=== PATIENT | male | born 1955 | race Caucasian/White ===

== ENCOUNTER → 2022-02-20 | Outpatient (CLI) | payer MEDICARE, OTHER ==
[~2022-02-20] MED LIST: ALBU3IS INH; ALBU90OI6 INH; Aspir 8181 MG PO; BUDE.25 INH; FLUO10 PO; FLUT.05NI; FLUT110OIA INH; GABA300 PO; Inderal60 MG; LISHYD2025 PO; METF500 PO; METO25ER PO; OLAN10 PO
[2022-02-20 17:17] LABS: Bun/Creatinine Ratio 28.7 (12.0-20.0); Calcium, Blood 10.4 mg/dL (8.5-10.1); Creatinine, Blood 0.73 mg/dL (0.60-1.20); Potassium, Blood 4.3 mmol/L (3.5-5.5)
== END | disposition home or self-care (01) ==
LOC: LAB SHORT 16:38 → LAB 16:38
PROVIDERS: Physician Assistant
DX: R33.9 Retention of urine, unspecified (principal)
CPT/HCPCS: 80048

== ENCOUNTER → 2022-05-13 | Outpatient (CLI) | payer MEDICARE, OTHER ==
[~2022-05-13] MED LIST changes: +ALBU90OI61 INH; +B-1100 M1 PO; +FOLI1 PO; +LISI20 PO; +LISINOPRIL-HCT1 EAC1 PO; +METFORMIN HCL500 M2 PO; +NICO21TP TOP; +SYMBICORT 16010.2 GM INH; +TAMSULOSIN HCL0.4 M1 PO; +Ventolin/Prove6.7 GM INH
== END | disposition home or self-care (01) ==
DX: R33.9 Retention of urine, unspecified (principal); N39.0 Urinary tract infection, site not specified

== ENCOUNTER 2022-06-17 06:45 | Emergency (ER) | payer MEDICARE, OTHER ==
[~2022-06-17] VITALS: Ht 175.3 cm; Wt 71.2 kg
[2022-06-17 07:34] LABS: Source, Urine Foley catheter
[2022-06-17 07:40] LABS: Appearance, Urine Turbid (Clear); Bilirubin, Urine Neg (Neg); Blood, Urine 5+ (Neg); Color, Urine Amber (P-Yellow); Glucose Qualitative, Urine Neg (Neg); Ketones, Urine Neg (Neg); Leukocyte Esterase, Urine 3+ (Neg); Nitrite, Urine Pos (Neg); Protein, Urine 3+ (Neg); Specific Gravity, Urine 1.015 (1.003-1.022); Urobilinogen, Urine NORM (Normal)
[2022-06-17 07:51] LABS: Amorphous Mod (0-Heavy); Bacteria Mod /hpf; Red Blood Cells, Urine TNTC /hpf (0-2); Squamous Epithelial Cells Not Seen /hpf (Few); White Blood Cells, Urine TNTC /hpf (0-5)
[2022-06-17 07:56] LABS: BASOPHILS ABSOLUTE AUTO 0.04 K/mm3 (0.00-0.23); BASOPHILS PERCENT AUTO 0 % (0-2); EOSINOPHILS ABSOLUTE AUTO 0.03 K/mm3 (0.00-0.68); EOSINOPHILS PERCENT AUTO 0 % (0-6); Hematocrit 40.2 % (37.0-53.0); Hemoglobin 14.2 g/dL (13.5-17.5); IMMATURE GRAN ABSOLUTE AUTO 0.04 K/mm3 (0.00-0.10); IMMATURE GRAN PERCENT AUTO 0 % (0-1); LYMPHOCYTES ABSOLUTE AUTO 0.66 K/mm3 (0.84-5.20); LYMPHOCYTES PERCENT AUTO 5 % (21-46); MONOCYTES ABSOLUTE AUTO 0.81 K/mm3 (0.16-1.47); MONOCYTES PERCENT AUTO 6 % (4-13); Mean Corpuscular HGB 32.3 pg (26.0-34.0); Mean Corpuscular HGB Conc 35.3 g/dL (31.5-36.5); Mean Corpuscular Volume 92 fL (80-100); Mean Platelet Volume 8.3 fL (9.1-12.4); NEUTROPHILS ABSOLUTE AUTO 11.31 K/mm3 (1.96-9.15); NEUTROPHILS PERCENT AUTO 88 % (41-73); Platelet Count 417 K/mm3 (150-400); RDW Coefficient Variation 12.7 % (11.7-14.2); RDW Standard Deviation 42.8 fL (35.1-46.3); Red Blood Cell Count 4.39 M/mm3 (4.30-5.90); White Blood Cell Count 12.89 K/mm3 (4.00-11.30)
[2022-06-17 08:21] LABS: Bun/Creatinine Ratio 23.6 (12.0-20.0); Calcium, Blood 9.1 mg/dL (8.5-10.1); Creatinine, Blood 0.55 mg/dL (0.60-1.20); Potassium, Blood 4.1 mmol/L (3.5-5.5)
[2022-06-17] MEDS ORDERED: CEFP200 PO (08:32)
== END 2022-06-17 10:02 | disposition home or self-care (01) ==
LOC: ER 06:45
PROVIDERS: Emergency Medicine
DX: T83.091A Other mechanical complication of indwelling urethral catheter, initial encounter (principal); N39.0 Urinary tract infection, site not specified; I11.0 Hypertensive heart disease with heart failure; I50.9 Heart failure, unspecified; E11.9 Type 2 diabetes mellitus without complications; J44.9 Chronic obstructive pulmonary disease, unspecified; F17.210 Nicotine dependence, cigarettes, uncomplicated; Z79.82 Long term (current) use of aspirin; Z79.899 Other long term (current) drug therapy; Y83.8 Other surgical procedures as the cause of abnormal reaction of the patient, or of later complication, without mention of misadventure at the time of the procedure
CPT/HCPCS: 36415; 51702; 80048; 81001; 85025; J0696

== ENCOUNTER 2022-11-28 15:02 | Inpatient (IN) | payer MEDICARE, OTHER ==
[~2022-11-28] VITALS: Ht 182.9 cm; Wt 64.9 kg
[~2022-11-28 15:02] MED LIST changes: +AMLODIPINE BES2.5 MG PO; +CEFP200 PO; +FINA5 PO
[2022-11-28 16:16] LABS: BASOPHILS ABSOLUTE AUTO 0.02 K/mm3 (0.00-0.23); BASOPHILS PERCENT AUTO 0 % (0-2); EOSINOPHILS PERCENT AUTO 0 % (0-6); Hematocrit 36.3 % (37.0-53.0); Hemoglobin 12.7 g/dL (13.5-17.5); IMMATURE GRAN ABSOLUTE AUTO 0.07 K/mm3 (0.00-0.10); IMMATURE GRAN PERCENT AUTO 0 % (0-1); LYMPHOCYTES ABSOLUTE AUTO 0.76 K/mm3 (0.84-5.20); LYMPHOCYTES PERCENT AUTO 5 % (21-46); MONOCYTES ABSOLUTE AUTO 1.39 K/mm3 (0.16-1.47); MONOCYTES PERCENT AUTO 8 % (4-13); Mean Corpuscular HGB 31.4 pg (26.0-34.0); Mean Corpuscular Volume 90 fL (80-100); Mean Platelet Volume 8.6 fL (9.1-12.4); NEUTROPHILS PERCENT AUTO 87 % (41-73); Platelet Count 712 K/mm3 (150-400); RDW Coefficient Variation 12.8 % (11.7-14.2); RDW Standard Deviation 42.2 fL (35.1-46.3); Red Blood Cell Count 4.04 M/mm3 (4.30-5.90); White Blood Cell Count 16.54 K/mm3 (4.00-11.30)
[2022-11-28 16:20] LABS: Alanine Aminotransfer (ALT/SGP 132 U/L (12-78); Albumin, Blood 2.8 g/dL (3.4-5.0); Albumin/Globulin Ratio 0.7 (0.8-1.8); Alk Phos 75 U/L (50-136); Anion Gap 11 mmol/L (6-16); Aspartate Aminotrans (AST/SGOT 389 U/L (12-37); Bilirubin, Total 0.7 mg/dL (0.1-1.0); Blood Urea Nitrogen 16 mg/dL (8-24); CO2, Blood 23 mmol/L (21-32); Calcium, Blood 8.9 mg/dL (8.5-10.1); Chloride, Blood 93 mmol/L (98-108); Creatinine, Blood 0.57 mg/dL (0.60-1.20); Ethanol (Alcohol), Blood, Med <3 mg/dL; Globulin, Blood 3.9 g/dL (2.2-4.0); Glomerular Filtration Rate 107 (60-); Glucose, Blood 80 mg/dL (70-99); Potassium, Blood 4.9 mmol/L (3.5-5.5); Sodium, Blood 127 mmol/L (136-145); Total Protein, Blood 6.7 g/dL (6.4-8.2)
[2022-11-28 17:02] LABS: Source, Urine Foley catheter
[2022-11-28 17:18] LABS: Appearance, Urine Hazy (Clear); Bilirubin, Urine Neg (Neg); Blood, Urine 5+ (Neg); Color, Urine Yellow (P-Yellow); Glucose Qualitative, Urine Neg (Neg); Ketones, Urine 4+ (Neg); Leukocyte Esterase, Urine 3+ (Neg); Nitrite, Urine Neg (Neg); Protein, Urine 1+ (Neg); Specific Gravity, Urine 1.015 (1.003-1.022); Urobilinogen, Urine NORM (Normal)
[2022-11-28 17:34] LABS: Creatine Kinase MB 75.5 ng/mL (0.0-3.6)
[2022-11-28 17:39] LABS: Squamous Epithelial Cells Rare /hpf (Few); White Blood Cells, Urine 25-50 /hpf (0-5)
[2022-11-28 17:40] LABS: Amorphous Light (0-Heavy); Bacteria Mod /hpf; Mucus Light (0-Heavy)
[2022-11-28 17:44] LABS: U Amphetamine Screen Not Detected; U Barbituate Screen Not Detected; U Benzodiazapine Screen Not Detected; U Buprenorphine Screen Not Detected; U Cannabinoids Screen DETECTED; U Cocaine Screen Not Detected; U Methadone Screen Not Detected; U Methamphetamine Screen Not Detected; U Opiates Screen Not Detected; U Oxycodone Screen Not Detected; U Phencyclidine Screen Not Detected; U Propoxyphene Screen Not Detected
[2022-11-28 20:54] VITALS: BP 141/87
[2022-11-28 21:05] LABS: Creatine Kinase MB Index 1.1 (0.0-4.0)
--- NOTE | 2022-11-28 21:30 | NUR ---
PT ADMITTED TO ROOM ICU 12 AT 2049 THIS EVENING. PT SLIDE TRANSFERRED TO BED FROM [facility]. PT HIGHLY CONFUSED AND GRABBING AT LINES. HAS PULLED IV'S WHILE IN ED. 2 MG ATIVAN GIVEN AND SOFT WRIST RESTRAINTS ESTABILISHED FOR HIS SAFETY. NOTED: EXTENSIVE WOUNDS SCATTERED THROUGHOUT HIS BODY WITH DIFFERENT STAGES OF HEALING. WILL REVIEW CHART AND PLAN OF CARE FOR THIS PT.
[2022-11-28 21:31] VITALS: BP 107/55
[2022-11-28 21:45] VITALS: BP 124/107
[2022-11-28 21:47] LABS: International Normalized Ratio 1.05
[2022-11-28 22:45] VITALS: BP 122/102
[2022-11-28 23:00] VITALS: BP 100/69
[2022-11-28 23:15] VITALS: BP 78/32
[2022-11-29] VITALS (62 sets, daily range): BP systolic 85–153; BP diastolic 40–133
--- NOTE | 2022-11-29 01:00 | NUR ---
PT HAS BEEN PLACED TO PRECEDEX DRIP. CURRENTLY RATE 0.2MCG'S/KG/HOUR. HAS BEEN MEDICATED SEVERAL TIMES WITH ATIVAN FOR INCREASE IN AGITATION AND ANXIOUSNESS. DID PLACE POWERGLIDE MIDLINE IV IN RIGHT UPPER ARM. PT TOLERATES THIS WELL. DRESSING PLACE TO WOUNDS ABLE. Q 2 HOUR TURNS TO HELP PROTECT SKIN INTEGRITY.
[2022-11-29 05:08] LABS: BASOPHILS ABSOLUTE AUTO 0.03 K/mm3 (0.00-0.23); BASOPHILS PERCENT AUTO 0 % (0-2); EOSINOPHILS PERCENT AUTO 0 % (0-6); Hematocrit 36.3 % (37.0-53.0); Hemoglobin 12.5 g/dL (13.5-17.5); IMMATURE GRAN ABSOLUTE AUTO 0.07 K/mm3 (0.00-0.10); IMMATURE GRAN PERCENT AUTO 0 % (0-1); LYMPHOCYTES ABSOLUTE AUTO 0.88 K/mm3 (0.84-5.20); LYMPHOCYTES PERCENT AUTO 5 % (21-46); MONOCYTES ABSOLUTE AUTO 1.27 K/mm3 (0.16-1.47); MONOCYTES PERCENT AUTO 8 % (4-13); Mean Corpuscular HGB 31.1 pg (26.0-34.0); Mean Corpuscular HGB Conc 34.4 g/dL (31.5-36.5); Mean Corpuscular Volume 90 fL (80-100); Mean Platelet Volume 7.9 fL (9.1-12.4); NEUTROPHILS ABSOLUTE AUTO 13.97 K/mm3 (1.96-9.15); NEUTROPHILS PERCENT AUTO 86 % (41-73); Platelet Count 653 K/mm3 (150-400); RDW Coefficient Variation 12.7 % (11.7-14.2); RDW Standard Deviation 41.9 fL (35.1-46.3); Red Blood Cell Count 4.02 M/mm3 (4.30-5.90); White Blood Cell Count 16.22 K/mm3 (4.00-11.30)
[2022-11-29 05:54] LABS: Albumin, Blood 2.3 g/dL (3.4-5.0); Albumin/Globulin Ratio 0.6 (0.8-1.8); Bilirubin, Total 0.5 mg/dL (0.1-1.0); Bun/Creatinine Ratio 19.6 (12.0-20.0); Calcium, Blood 8.2 mg/dL (8.5-10.1); Creatinine, Blood 0.51 mg/dL (0.60-1.20); Globulin, Blood 3.7 g/dL (2.2-4.0); Potassium, Blood 3.9 mmol/L (3.5-5.5)
[2022-11-29 06:11] LABS: Creatine Kinase MB 43.2 ng/mL (0.0-3.6); Creatine Kinase MB Index 1.4 (0.0-4.0)
--- NOTE | 2022-11-29 06:30 | NUR ---
HAVE REMOVED SOFT RESTRAINTS AFTER NOTING PRECEDEX DRIP HAS HELPED IN KEEPING PT CALM AND NOT BEING AGRESSIVE AT PULLING AT LINES. PT HAS NOT MADE ANY COMPREHENSABLE EFFORTS AT SPEAKING. PT'S SISTER CALLS TO CHECK ON PT. UPDATE GIVEN. WILL CONTINUE TO MONITOR PT, AND WILL REPORT OFF TO ONCOMING RN.
--- NOTE | 2022-11-29 14:05 | NUR ---
RT: called for neb treatment.
--- NOTE | 2022-11-29 15:14 | NUR ---
FAMILY UPDATE: Pt's sister Jimena at bedside with her spouse. Family updated up pt status and plan of care.
--- NOTE | 2022-11-29 19:09 | NUR ---
SHIFT SUMMARY: Pt up to chair for four hours today. Precedex titrated off and librium started after bedside swallow. Pt complained of pain to BLE for which he takes oxycodone at home. Pain was treated with PRN fentanyl.
--- NOTE | 2022-11-29 20:24 | NUR ---
PATIENT SLEEPING, AWAKENS TO SLIGHT STIMULI. WHEN AWAKE C/O PAIN TO BACK, FEET AND HEAD. WHEN ASKED TO ELABORATE, PATIENT QUICK TO ANGER "I JUST HURT" AT TIMES SPEECH IS SOFT AND MUMBLED MAKING IT DIFFICULT TO UNDERSTAND. PATIENT ABLE TO ASSIST WITH REPOSITIONING IN BED. PRECEDEX REMAINS OFF.
[2022-11-29] MEDS ORDERED: OXYC5 PO (20:39)
--- NOTE | 2022-11-29 22:58 | NUR ---
PATIENT APPEARS TO BE SLEEPING, YET SITTING UP IN BED, THROWING BLANKETS OFF, AND MOUTHING WORDS. HEART RATE UP 120'S AND RESP UP TO 24. THIS ALL STARTING AFTER GIVING ATIVAN AND RESTARTING PRECEDEX. PRECEDEX TITRATED OFF.
[2022-11-30] VITALS (57 sets, daily range): BP systolic 93–140; BP diastolic 65–119
[2022-11-30 03:58] LABS: BASOPHILS ABSOLUTE AUTO 0.02 K/mm3 (0.00-0.23); BASOPHILS PERCENT AUTO 0 % (0-2); EOSINOPHILS ABSOLUTE AUTO 0.02 K/mm3 (0.00-0.68); EOSINOPHILS PERCENT AUTO 0 % (0-6); Hematocrit 34.4 % (37.0-53.0); Hemoglobin 11.8 g/dL (13.5-17.5); IMMATURE GRAN ABSOLUTE AUTO 0.06 K/mm3 (0.00-0.10); IMMATURE GRAN PERCENT AUTO 0 % (0-1); LYMPHOCYTES ABSOLUTE AUTO 0.89 K/mm3 (0.84-5.20); LYMPHOCYTES PERCENT AUTO 7 % (21-46); MONOCYTES ABSOLUTE AUTO 1.07 K/mm3 (0.16-1.47); MONOCYTES PERCENT AUTO 8 % (4-13); Mean Corpuscular HGB 31.1 pg (26.0-34.0); Mean Corpuscular HGB Conc 34.3 g/dL (31.5-36.5); Mean Corpuscular Volume 91 fL (80-100); Mean Platelet Volume 7.9 fL (9.1-12.4); NEUTROPHILS ABSOLUTE AUTO 11.73 K/mm3 (1.96-9.15); NEUTROPHILS PERCENT AUTO 85 % (41-73); Platelet Count 610 K/mm3 (150-400); RDW Coefficient Variation 12.9 % (11.7-14.2); RDW Standard Deviation 42.7 fL (35.1-46.3); White Blood Cell Count 13.79 K/mm3 (4.00-11.30)
[2022-11-30 04:14] LABS: Albumin/Globulin Ratio 0.6 (0.8-1.8); Bilirubin, Total 0.4 mg/dL (0.1-1.0); Bun/Creatinine Ratio 15.2 (12.0-20.0); Calcium, Blood 8.2 mg/dL (8.5-10.1); Creatinine, Blood 0.53 mg/dL (0.60-1.20); Globulin, Blood 3.5 g/dL (2.2-4.0); Phosphorus, Blood 1.9 mg/dL (2.5-4.9); Potassium, Blood 3.7 mmol/L (3.5-5.5); Total Protein, Blood 5.5 g/dL (6.4-8.2)
--- NOTE | 2022-11-30 05:27 | NUR ---
SUMMARY PATIENT SLEEPING MOST OF THE NIGHT, WHILE ON PRECEDEX APPEARS TO HAVE VERY ACTIVE DREAMS, PRECEDEX NOW OFF. MEDICATED TWICE WITH FENTANYL 25 MCG FOR BACK AND FOOT PAIN. PATIENT RESISTANT TO REPOSITIONING, ATTEMPTING TO TILT SIDE TO SIDE WHEN ABLE. DOCTOR KATHLEEN NOTIFIED OF AM LABS, ORDER OBTAINED FOR KPHOS.
--- NOTE | 2022-11-30 07:27 | NUR ---
Assumed care at approximately 0700. Bedside report received from cj QUINONES. Pt sleeping in bed at time of report. Potassium phos infusing at 6 mmol/hr. Pt on 02 via NC at 3 L/min. No acute needs at time of report. Will continue to monitor.
--- NOTE | 2022-11-30 18:30 | NUR ---
Shift summary. Pt rested in bed throughout shift. Remains on 02 via NC at 3 L/min. Pt failed speech eval, see assessment. Dobhoff placed at approximately 1630, placement verified by Dr. Chacon via X-ray. TF started, 20 ml/hr goal rate, pivot 1.5, Q4 30ml water flushes. No acute events this shift. See assessments/chart for further details. VS stable, will continue to monitor and report off to cj QUINONES.
--- NOTE | 2022-11-30 19:58 | NUR ---
PATIENT RESTING IN BED WATCHING TV. SPEECH IS SOFT AND MUMBLED AT TIMES, BUT PATIENT IS A&O X3. GENERALIZED WEAKNESS, ABLE TO ASSIST WITH REPOSITIONING IN BED. C/O FOOT PAIN MEDICATED WITH FENTANYL IV WITH LITTLE RELIEF. DOBHOFF TO RIGHT NOSTRIL WITH PIVOT 1.5 AT GOAL RATE OF 20 CC/HR. STRONG NONPRODUCTIVE COUGH. LUNG SOUNDS WITH COARSE WHEEZES T/O 5L/NC TO KEEP BIOX >90%
[2022-12-01] VITALS (20 sets, daily range): BP systolic 92–127; BP diastolic 67–95
--- NOTE | 2022-12-01 00:17 | NUR ---
PATIENT SLEEPING, APPEARS TO HAVE BETTER PAIN CONTROL AFTER ATIVAN AND OXYCODONE GIVEN. PATIENT OPENS EYES TO STIMULI, FALLING BACK TO SLEEP EASILY. RESP EVEN AND UNLABORED. TUBE FEEDING OFF FOR STRESS TEST TOMORROW.
--- NOTE | 2022-12-01 03:36 | NUR ---
PATIENT AWAKE IN A PANIC, HR UP TO 130'S. UDN TX, ATIVAN, AND OXYCODONE GIVEN FOR COARSE WHEEZES, ANXIETY AND FOOT PAIN. PATIENT MORE RELAXED AFTER TREATMENT HR 117-120
[2022-12-01 04:07] LABS: BASOPHILS ABSOLUTE AUTO 0.03 K/mm3 (0.00-0.23); BASOPHILS PERCENT AUTO 0 % (0-2); EOSINOPHILS ABSOLUTE AUTO 0.05 K/mm3 (0.00-0.68); EOSINOPHILS PERCENT AUTO 0 % (0-6); Hematocrit 34.6 % (37.0-53.0); Hemoglobin 11.9 g/dL (13.5-17.5); IMMATURE GRAN ABSOLUTE AUTO 0.04 K/mm3 (0.00-0.10); IMMATURE GRAN PERCENT AUTO 0 % (0-1); LYMPHOCYTES ABSOLUTE AUTO 1.09 K/mm3 (0.84-5.20); LYMPHOCYTES PERCENT AUTO 8 % (21-46); MONOCYTES ABSOLUTE AUTO 1.08 K/mm3 (0.16-1.47); MONOCYTES PERCENT AUTO 8 % (4-13); Mean Corpuscular HGB 31.2 pg (26.0-34.0); Mean Corpuscular HGB Conc 34.4 g/dL (31.5-36.5); Mean Corpuscular Volume 91 fL (80-100); NEUTROPHILS ABSOLUTE AUTO 10.66 K/mm3 (1.96-9.15); NEUTROPHILS PERCENT AUTO 82 % (41-73); Platelet Count 625 K/mm3 (150-400); RDW Coefficient Variation 13.2 % (11.7-14.2); RDW Standard Deviation 43.2 fL (35.1-46.3); Red Blood Cell Count 3.81 M/mm3 (4.30-5.90); White Blood Cell Count 12.95 K/mm3 (4.00-11.30)
[2022-12-01 04:25] LABS: Albumin/Globulin Ratio 0.5 (0.8-1.8); Bilirubin, Total 0.4 mg/dL (0.1-1.0); Bun/Creatinine Ratio 17.9 (12.0-20.0); Calcium, Blood 8.6 mg/dL (8.5-10.1); Creatinine, Blood 0.61 mg/dL (0.60-1.20); Globulin, Blood 3.8 g/dL (2.2-4.0); Phosphorus, Blood 2.8 mg/dL (2.5-4.9); Total Protein, Blood 5.8 g/dL (6.4-8.2)
--- NOTE | 2022-12-01 05:49 | NUR ---
SUMMARY PATIENT SLEEPING MOST OF THE NIGHT, PATIENT MEDICATED WITH ATIVAN 1 MG TWICE DURING THE NIGHT FOR PANIC ATTACKS. CONTINUES TO HAVE DIFFICULTY WITH SEVERE FOOT AND LEG PAIN. DOBHOFF CLAMPED, PLAN TO RESTART TUBE FEEDING AFTER STRESS TEST TODAY.
--- NOTE | 2022-12-01 07:38 | NUR ---
DR. PINEDO UPDATED ON PATIENT STATUS. INFORMED THAT SPEECH HAS PATIENT NPO EXCEPT FOR MEDS CRUSHED IN APPLESAUCE. INFORMED PATIENT DOES HAVE DOBHOFF. INFORMED THAT PATIENT ON METOPROLOL SUCCINATE AND IT CANNOT BE CRUSHED. INFORMED THAT TUBING MILL SETTER RN REPORTED THEY GAVE 1 MG ATIVAN TWICE ON TUBING MILL SETTER FOR ANXIETY AND THAT IT HELPED QUITE A LOT. NO ORDERS RECEIVED AT THIS TIME.
--- NOTE | 2022-12-01 08:00 | NUR ---
INITIAL ASSESSMENT PATIENT LETHARGIC. SLEEPING UPON ENTERING ROOM. PATIENT ALERT AND ORIENTED X 4, AFEBRILE. SPEECH SOFT AND DIFFICULT TO UNDERSTAND AT TIMES. PATIENT HAS FLAT AFFECT. PATIENT ANXIOUS AND IRRITABLE WHEN HAS BAD PAIN IN FEET AND TOES. CIWA SCORE OF ZERO THIS AM. PATIENT WEAK BUT ABLE TO MOVE ALL EXTREMITIES. PATIENT SATTING 90% AND GREATER ON 5 L NC. PATIENT HAS OCCASIONAL NONPRODUCTIVE COUGH. RHONCHI NOTED IN RLL; ALL OTHER LUNG LOBES CLEAR TO AUSCULTATION. PATIENT IN ST WITH ST DEPRESSION. HR IN THE 1-TEENS. SBP IN THE LOW 100S. DOBHOFF IN PLACE. TF ON HOLD SINCE MIDNIGHT FOR PENDING STRESS TEST TODAY. CHRONIC SAWYER IN PLACE DRAINING JUNIE COLORED URINE. URETHRA ERODED. SKIN PALE, DRY, PEELING, DUSKY, FRAGILE. SCATTERED SKIN TEARS AND SCABS. WOUNDS TO LES AND COCCYX/ GLUTEALS. PICS IN PATIENT CHART. BED LOW, CALL LIGHT IN REACH. WILL CONTINUE TO MONITOR PATIENT FREQUENTLY THROUGHOUT SHIFT.
--- NOTE | 2022-12-01 12:07 | NUR ---
DR. PINEDO CALLED AND UPDATED ON PATIENT. INFORMED THAT URINE CULTURE CAME BACK POSITIVE FOR STAPH AND ENTEROCOCCUS AVIUM, GROUP D. INFORMED THAT PALLIATIVE CARE IS GOING TO COME SPEAK TO PATIENT BECAUSE PATIENT TOLD PHYSICAL THERAPY "I KNOW I AM DYING, I WANT TO GO HOME TO ". INFORMED THAT COFFEE MAKER STATED THAT PATIENT WILL NEED MCGLADE AND SURGERY CONSULT WOUNDS. NO ORDERS RECEIVED AT THIS TIME.
--- NOTE | 2022-12-01 12:30 | NUR ---
PATIENT AFEBRILE. HR IN THE 120S. SBP IN THE LOW 100S. WOUND CARE AND PICS PERFORMED BY HYDROELECTRIC PLANT ELECTRICIAN. NO OTHER ACUTE CHANGES TO NOTE ON AT THIS TIME.
--- NOTE | 2022-12-01 13:26 | NUR ---
TF RESTARTED AT NEW GOAL RATE OF 40 MLS/ HOUR WITH 30 ML WATER FLUSH Q4H.
--- NOTE | 2022-12-01 13:37 | NUR ---
WOUND CARE WOUND PHOTOS AND ASSESSMENTS IN HARD CHART. SKIN TEARS TO L KNEE AND BUE CLEANSED AND COVERED WITH HYDROCOLLOID DRESSINGS. BL GLUT AND COCCYX STAGE 3 PI CLEANSED WITH MEDIHONEY TO WOUND BEDS COVERED WITH BORDERED FOAM. BLE ATERIAL ULCER TREATMENT WILL DEPEND ON PT CARE GOALS. AT THIS POINT KEEP DRY AND PAINT WITH BETADINE DAILY. IF PT DECLINES HOSPICE PRIMARY RN HAS RECIEVED ORDERS FOR IR AND SURGICAL CONSULT
--- NOTE | 2022-12-01 15:06 | NUR ---
pt aggitated and upset about his pain and discomfort. Review of symptoms, He is having more headaches and difficulty with sleep. He has ringing in his ears and more balance disturbance and falls. He states he is always in terrible pain. He complains of shooting pain down his legs. He is also having more abdominal pain. He is very distraught by his decline. Carefully reviewed that he is having stress test today and we will see what we can offer him. Advised pt that he is suffering and we need to talk about a differnt plan of care and possibly moving toards more of a comfort plan. Will follow up with him after his stress test. Called his siter to update her and she is going to come see him. His other sister is also coming to see him. Spoke with doctor Patel on prognosis and recomend hospice. kps score 40%
--- NOTE | 2022-12-01 16:30 | NUR ---
PATIENT MORE AWAKE THIS AFTERNOON. PATIENT HAS NOT BEEN COMPLAINING OF FOOT/ TOE PAIN NEAR MUCH THIS AM. PATIENT AFEBRILE. HR IN THE 120S. SBP IN THE 90S. TF INFUSING AT GOAL RATE. PATIENT GIVEN PRN COLACE HAD NOT HAD STOOL IN 3 DAYS NOW. NO OTHER ACUTE CHANGES AT THIS TIME. PATIENT WATCHING TV IN BED. WILL CONTINUE TO MONITOR.
[2022-12-01] MEDS ORDERED: B COMPLEX (17:04)
[2022-12-01] MEDS ORDERED: B12 (17:04)
[2022-12-01] MEDS ORDERED: MAGNESIUM OXID500 MG PO (17:04)
[2022-12-01] MEDS ORDERED: ATROVENT HFA12.9 GM INH (17:05)
--- NOTE | 2022-12-01 18:58 | NUR ---
SHIFT SUMMARY PATIENT REMAINED ALERT AND ORIENTED X 4, AFEBRILE. PATIENT LETHARGIC THIS AM AND HAS NAPPED ON AND OFF T/O SHIFT. PATIENT MORE AWAKE THIS AFTERNOON AND SMILING MORE. CIWA REMAINED ZERO ALL DAY. PATIENT RECEIVED PRN OXY AND FENTANYL FOR COMPLAINTS OF PAIN IN FEET AND TOES. PATIENT HAS HAD LESS COMPLAINTS OF PAIN THIS AFTERNOON. PATIENT HAS REMAINED ON 5 L NC. PATIENT HAS REMAINED ST WITH ST DEPRESSION. HR 1-TEENS TO 120S. SBP 90S TO 120S. TF RESTARTED THIS SHIFT AFTER STRESS TEST; TF AT NEW GOAL RATE OF 40 MLS/ HOUR. NO BM THIS SHIFT. PRN COLACE GIVEN PATIENT DOCUMENTED TO HAVE BM LAST 3 DAYS AGO. 350 MLS OUT OF CHRONIC SAWYER. WOUND CARE PROVIDED BY WOUND CARE NURSE. ZHANG CASTILLO. PT AND OT WORKED WITH PATIENT THIS SHIFT. PATIENT DECLINED BED BATH THIS SHIFT. BED LOW, CALL LIGHT IN REACH. NO COMPLAINTS AT THIS TIME. REPORT WILL BE GIVEN TO [facility] COORDINATOR NURSE SHORTLY.
--- NOTE | 2022-12-01 20:25 | NUR ---
PATIENT AWAKE, RESTLESS AND ANGRY C/O FOOT PAIN, AND FEELING SOB, BIOX 89-90% ON 6L/NC. RT CALLED AND UDN TX GIVEN. PATIENT REPOSITIONED AND GIVEN OXYCODONE AND LIBRIUM VIA DOBHOFF. PATIENT ABLE TO ASSIST WITH REPOSITIONING. TUBE FEEDING WITH PIVOT 1.5 AT GOAL RATE OF 40 CC/HR.
[2022-12-02] VITALS (10 sets, daily range): BP systolic 117–150; BP diastolic 73–93
--- NOTE | 2022-12-02 01:49 | NUR ---
PATIENT AWAKE FROM A SOUND SLEEP WITH PANIC ATTACK. AUDIBLE WHEEZES. BIOX DOWN TO 86% RT AND DOCTOR KATHLEEN NOTIFIED AND PRN NEB TX OBTAINED. PATIENT MEDICATED WITH ATIVAN AND OXYCODONE FOR ANXIETY AND FOOT PAIN. PATIENT NOW CALM AND APPEARS TO BE SLEEPING
--- NOTE | 2022-12-02 02:32 | NUR ---
PATIENT RESTING QUIETLY BIOX 88-89% ON 6L/NC. LUNG SOUNDS WITH WHEEZES T/O. RT CALLED WILL TRY OXYMASK
[2022-12-02 05:15] LABS: BASOPHILS ABSOLUTE AUTO 0.03 K/mm3 (0.00-0.23); BASOPHILS PERCENT AUTO 0 % (0-2); EOSINOPHILS ABSOLUTE AUTO 0.08 K/mm3 (0.00-0.68); EOSINOPHILS PERCENT AUTO 1 % (0-6); Hematocrit 33.6 % (37.0-53.0); Hemoglobin 11.6 g/dL (13.5-17.5); IMMATURE GRAN ABSOLUTE AUTO 0.04 K/mm3 (0.00-0.10); IMMATURE GRAN PERCENT AUTO 0 % (0-1); LYMPHOCYTES ABSOLUTE AUTO 0.73 K/mm3 (0.84-5.20); LYMPHOCYTES PERCENT AUTO 6 % (21-46); MONOCYTES ABSOLUTE AUTO 0.94 K/mm3 (0.16-1.47); MONOCYTES PERCENT AUTO 8 % (4-13); Mean Corpuscular HGB 31.4 pg (26.0-34.0); Mean Corpuscular HGB Conc 34.5 g/dL (31.5-36.5); Mean Corpuscular Volume 91 fL (80-100); Mean Platelet Volume 8.2 fL (9.1-12.4); NEUTROPHILS PERCENT AUTO 84 % (41-73); Platelet Count 601 K/mm3 (150-400); RDW Coefficient Variation 13.2 % (11.7-14.2); RDW Standard Deviation 43.1 fL (35.1-46.3); White Blood Cell Count 11.52 K/mm3 (4.00-11.30)
[2022-12-02 05:54] LABS: Bun/Creatinine Ratio 27.4 (12.0-20.0); Calcium, Blood 8.6 mg/dL (8.5-10.1); Creatinine, Blood 0.55 mg/dL (0.60-1.20); Potassium, Blood 4.1 mmol/L (3.5-5.5)
--- NOTE | 2022-12-02 06:32 | NUR ---
PATIENT SLEEPING OFF AND ON T/O NIGHT AWAKENS IN A PANIC SEVERAL TIMES DURING THE NIGHT. ATIVAN 0.5 MG TWICE DURING THE NIGHT TO HELP WITH PANIC ATTACKS. MEDICATED WITH OXYCODONE FOR FOOT PAIN. PATIENT CONTINUES TO NEED MORE OXYGEN T/O NIGHT UP TO 6L/NC AND 2L/OXY MASK PATIENT REMOVING MASK AT TIMES. NG IN PLACE TUBE FEEDING OFF AT THIS TIME FOR BARIUM SWALLOW AND 2ND PART OF STRESS TEST TODAY.
--- NOTE | 2022-12-02 08:00 | NUR ---
DR. PINEDO UPDATED ON PATIENT STATUS. INFORMED THAT PATIENT APPEARS TO BE TAKING A TURN FOR THE WORSE. INFORMED THAT PATIENT'S COLOR LOOKS WORSE THAN YESTERDAY. INFORMED THAT PATIENT WENT FROM 5 L NC TO 10 L HF WITH 3 L OXYMASK ON TOP OF HF TODAY. INFORMED THAT STEEL DETAILER RN REPORT PATIENT HAD SEVERAL PANIC ATTACKS LAST NIGHT. STEEL DETAILER REPORTED THAT PATIENT DID WELL WITH THE 0.5 MG IV ATIVAN. INFORMED THAT PATIENT RECEIVED BREATHING TREATMENT BUT STILL SOUNDS WHEEZY AND CRACKLY. INFORMED THAT IT LOOKS LIKE PATIENT IS + FLUID BALANCE AND THAT HE HAS GAINED WEIGHT. INFORMED THAT PATIENT ECHO SHOWED EF OF 35 TO 40%. INFORMED THAT PATIENT HAS CHRONIC SAWYER AND THAT IT SHOWS THAT HE HAS BEEN TAKING FLOMAX 0.4 MG RECENTLY AT HOME. INFORMED THAT PATIENT CONTINUES TO SAY OVER AND OVER THAT HE "JUST WANTS TO GO HOME". PALLIATIVE CARE NURSE, SADIE MOON CALLED AND UPDATED; SADIE STATED SHE WOULD BE OVER TO SEE PATIENT SHORTLY.
--- NOTE | 2022-12-02 08:00 | NUR ---
INITIAL ASSESSMENT PATIENT SLEEPING UPON ENTERING ROOM. PATIENT ABLE TO ANSWER ALL ORIENTATION QUESTIONS CORRECTLY. PATIENT FLAT AND WITHDRAWN. PATIENT IRRITABLE. SPEECH SOFT AND DIFFICULT TO UNDERSTAND. CIWA SCORE OF ZERO. PATIENT WEAK BUT ABLE TO MOVE ALL EXTREMITIES. PATIENT AFEBRILE. PATIENT COMPLAINTS OF PAIN IN TOES AND FEET. PATIENT CONTINUOUSLY REPEATING THAT HE WANTS TO GO HOME. PATIENT ON 10 L HF NC AND 3 L OXYMASK. LUNGS ARE WHEEZY AND CRACKLY. PATIENT HAS OCCASIONAL NONPRODUCTIVE COUGH. PATIENT IN ST WITH ST DEPRESSION. HR IN THE 1-TEENS. SBP IN THE 130S. DOBHOFF TF OFF SINCE 0400 FOR PENDING STRESS TEST TODAY. CHRONIC SAWYER IN PLACE DRAINING JUNIE COLORED URINE. PATIENT HAS MANY SCATTERED WOUNDS, SKIN TEARS, SCABS, BRUISES ALL T/O BODY. WORST WOUNDS TO FEET AND BOTTOM. BED LOW, CALL LIGHT IN REACH. WILL CONTINUE TO MONITOR PATIENT FREQUENTLY THROUGHOUT SHIFT.
--- NOTE | 2022-12-02 09:30 | NUR ---
Call from nursing pt declined last night. met with pt he is more distraught wanting to go home. He is still having pain to hi legs. Carefully discussed with him slowly about life support and suffering. He clearly stated no tube in my throat or cpr. I asked if he wanted to think about it more or talk to his sister. He stated he was sure. Physician notified and DNR placed. Pt goal is to go home. I advied not sure I can get you home but can help with a plan revied extrodinary suffering and the risk of further intervention. He doesnot want to go through much more. He states he is scared. I ask how long he thinks he is going to live. He was tearfull and said not long. We started to the hospice conversation. The focus wans on pain control. Advise him he can live as he choses. If he does not drink and getsbetter pain control he can opt out of hospice and seek care. This gave him great comfort but not sure he want more treatment. We settled on DNR and talking to his sister today about hospice. Advised him I dont want him to make such a decision alone without his sister help. He aknoledged that was a good plan. Will follow up with family and physician. Advised speech therapy of our conversation and his frailty.
--- NOTE | 2022-12-02 10:45 | NUR ---
Spiritual Care Visit | Nurse Request Pt. is awake in his bed when he welcomes my visit. Pt. is unsettled by his condition and verbalizes that he "wants to go home." Listen with empathy and a calming presence. Facilitated a conversation about the kind of support he has at home, and the Pt. was not verbally clear about home support. Normalized the Pt. experience. Pt. verbalized gratitude for the spiritual care visit.
--- NOTE | 2022-12-02 12:45 | NUR ---
PATIENT AFEBRILE. HR IN THE LOW 100S. SBP IN THE 120S. TF RESUMED TO GOAL RATE OF 40 MLS/ HOUR AFTER PATIENT INJECTED FOR STRESS TEST THIS AM. WOUND CARE PERFORMED. PATIENT HAS NO COMPLAINTS OF PAIN AT THIS TIME. WILL CONTINUE TO MONITOR.
--- NOTE | 2022-12-02 13:22 | NUR ---
multiple visits with pt today to talk about his needs and feeling. He spoke with doctor geo and decided to not persue care. He feels it will be to painful and not work. we discussed further talking to his family. He was very clear that he did not want to wait and said he wants comfort care. reassured him that he was making a reasonable choice. And eduardo again he could change his plan if he wanted. called sister no answer left a message will call again.
--- NOTE | 2022-12-02 16:20 | NUR ---
PATIENT LAYING IN BED WATCHING TV. PATIENT GIVEN PRN PAIN MEDICATION. PATIENT HAS NO OTHER COMPLAINTS AT THIS TIME. CALL LIGHT IN REACH. WILL CONTINUE TO MONITOR.
--- NOTE | 2022-12-02 18:44 | NUR ---
SHIFT SUMMARY PATIENT HAS REMAINED A AND O X 4, AFEBRILE. PATIENT IRRITABLE THIS AM BUT HAS BECOME LESS SO T/O DAY. PATIENT COOPERATIVE. PATIENT DID NOT HAVE ANY ANXIOUS EPISODES THIS SHIFT. PATIENT CONTINUED TO VOICE TODAY THAT HE "JUST WANTS TO GO HOME". AFTER SPEAKING WITH PALLIATIVE CARE NURSE IN DEPTH, PATIENT DECIDED TO CHANGE HIS STATUS TO COMFORT CARE. PATIENT REMAINED WEAK BUT ABLE TO MOVE ALL EXTREMITIES AND ASSIST WITH REPOSITIONING. PATIENT ON 10 L HF NC AND 3 L OXYMASK THIS AM. PATIENT COMFORTABLE ON 10 L HF AT THIS TIME TO HELP WITH FEELING SHORT OF BREATH. PATIENT REMAINS WITH DOBHOFF AND ON TF PER PALLIATIVE CARE NURSE. CHRONIC SAWYER REMAINS IN PLACE. PATIENT HAS NO COMPLAINTS AT THIS TIME. BED LOW, CALL LIGHT IN REACH. REPORT WILL BE GIVEN TO ASSUMING STOCKHOLDER NURSE SHORTLY.
--- NOTE | 2022-12-02 19:33 | NUR ---
ASSESSMENT: A&O X2; CAN'T QUITE TELL ME THE DATE, BUT IS AWARE OF THE YEAR. DENIES PAIN AT THIS TIME. PT WAS REPOSITIONED AND BECAME DYSPNIC WITH TURNING. 86 % ON 11L HIFLOW N/C. MCKENZIE HANNA WITH PIVOT 1.5 @ 4OCC/HR WITH 30CC FLUSH Q 4HR. PG GUDELIA WITH NS RUNNING AT TKO. WILL MEDICATE PER MD ORDERS TO KEEP PT COMFORTABLE.
[2022-12-03 00:58] LABS: Influenza A, PCR NEGATIVE (NEGATIVE); Influenza B, PCR NEGATIVE (NEGATIVE); Resp Syncytial Virus, PCR NEGATIVE (NEGATIVE); SARS-Cov-2 (COVID-19) PCR, MMC NEGATIVE (NEGATIVE)
--- NOTE | 2022-12-03 04:21 | NUR ---
PATIENT PULLED NG PATIENT WAS FOUND TO HAVE PULLED NG TUBE OUT 9+ INCHES AND WAS COUGHING. THIS RN AIDED IN THE COMPLETION OF NG DC. SPOKE WITH HS PROVIDER AND OK TO LEAVE OUT. PATIENT STATES HE DOES NOT WANT ANOTHER ONE.
--- NOTE | 2022-12-03 05:45 | NUR ---
PATIENT IS ALERT AND ORIENTED X3, CALLS TO MAKE NEEDS KNOWN, BEDREST THIS SHIFT HE IS VERY DIZZY WITH CONFUSION. IMPULSIVE AT TIMES. BLE PAIN TREATED PER MAR, NG TUBE PULLED BY PATIENT, PLEASE SEE LAST NOTE. FC DRAINING TO GRAVITY, 10L HIGH FLOW VIA NC. NO OTHER ISSUES TO REPORT.
--- NOTE | 2022-12-03 17:04 | NUR ---
NOTE PT COMFRT CARE. MEDCIATED FOR FEET BURNING/PAIN X1 TODAY. MORPHINE 5MG IV GIVEN. DID NOT MAKE HIM SLEEPY AT ALL. HE EXPRESSED GOOD RELIEF FROM THE BURNING. CURRENTLY SITING UP DRINKING ROOTBEER AND WATCHING TV. AJ NEEDS AT THIS TIME. MULTIPLE VISITORS THIS EVENING. CONTINUE POC.
--- NOTE | 2022-12-03 17:53 | NUR ---
Pt sitting up watching tv. Makedly improved affect and communication. He states his feet still hurt a little but not anything like they were. He still wants to go home. But, he is starting to face his realities. He is in discussion with his niece. He is hoping to get some help. We had a serious discussion about his future needs and facing reality that he needs more hlep and to move to assisted living. Reviewed medications and when to ask and to watch for constipation. Discussed ETOH support. He was very talkative about his leg and neuropathy. He now understands he is limited on his reponse to treatment. We dicussed living his life in comfort and healing until he passes. Will continue to adjust medications accordingly. pt high risk for readmission if he hidalgo not have solid living situation for his hospice plan.
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
--- NOTE | 2022-12-04 09:33 | NUR ---
pt ate breakfast and took am meds, denies any complaints, states he's feeling good, and slept well last night, call light in reach.
--- NOTE | 2022-12-04 15:14 | NUR ---
pt much more comfortable but aggitated. He is focused on wanting to go home. He is more repetative today. He had a good visit from his sisters. got him a diet and he has been taking ensures. His leges still ache but states it is more tolerable. Hopefully his comfort improves more with th neurontin.
--- NOTE | 2022-12-04 15:17 | NUR ---
Spiritual Care Attempted. Pt. is resting and does not respond to my introduction. Instead of waking Pt. up, prayed for Pt. Will monitor Pts. progress and be avilable as needed.
--- NOTE | 2022-12-04 18:14 | NUR ---
pt has complained a number of times today that he wants to go home today, it will be fine, get the doc here. I did call her at one point and she came to see him and explain that it can't happen today, he is ok about it now, all dressings are dry and intact. call light in reach.
--- NOTE | 2022-12-05 05:07 | NUR ---
SHIFT SUMMARY: SANGEETHA IS A&O X4, ALTHOUGH DIFFICULT TO ASSESS D/T SOFT VOICE AND MUMBLING SPEECH. PT IS ON COMFORT CARE. HE REPORTS ADEQUATE PAIN CONTROL WITH 5 MG OF IV MORPHINE. TURNING AND REPOSITIONING OFFERED FREQUENTLY THROUGHOUT SHIFT, PT SOMETIMES ACCEPTED. EDUCATED PT ON IMPORTANCE OF OFF-LOADING PRESSURE SORES. PT COMPLAINED OF NAUSEA WHEN REPOSITIONED TO HIS SIDE AND REPORTED FEELING BETTER SITTING UP. COCCYX AND HEELS FLOATED. POWERGLIDE TO GUDELIA PATENT. O2 AT 10 LPM VIA HI-FLOW NC IN PLACE. PT HAS BEEN TOLERATING PO LIQUIDS WELL. WCTM UNTIL REPORT IS GIVEN TO DAY SHIFT RN.
--- NOTE | 2022-12-05 19:24 | NUR ---
SHIFT SUMMARY: PT A/O X 4, BEDREST. PLEASANT AND COOPERATIVE WITH CARE. PT PAIN MANAGED AT THIS TIME WITH MORPHINE 5 MG IV. PT CONTINUES TO BE ON 10 LPM VIA HIGH FLOW O2. WOUND CARE COMPLETED PER ORDERS. PURULENT DRAINAGE NOTED TO L KNEE WOUND WHEN DRESSING REMOVED. SMALL AMOUNT, NO ODOR. PT CONTINUES TO HAVE SAWYER CATHETER DRAINING CLEAR YELLOW URINE.
--- NOTE | 2022-12-06 06:45 | NUR ---
NO SIGNIFICANT CHANGES NOTED. MORPHINE 5 MG IV FOR PAIN IN R FOOT AND BACK. TOLERATES THIN LIQUIDS. AOX4 EXCEPT FOR WAKING CONFUSED AROUND 0500. WOUND CARE COMPLETED BY NURSE ON PREVIOUS SHIFT.
[2022-12-06 14:51] VITALS: BP 157/85
[2022-12-06 15:01] LABS: BASOPHILS ABSOLUTE AUTO 0.07 K/mm3 (0.00-0.23); BASOPHILS PERCENT AUTO 1 % (0-2); EOSINOPHILS ABSOLUTE AUTO 0.12 K/mm3 (0.00-0.68); EOSINOPHILS PERCENT AUTO 1 % (0-6); Hematocrit 38.4 % (37.0-53.0); Hemoglobin 12.7 g/dL (13.5-17.5); IMMATURE GRAN ABSOLUTE AUTO 0.04 K/mm3 (0.00-0.10); IMMATURE GRAN PERCENT AUTO 0 % (0-1); LYMPHOCYTES ABSOLUTE AUTO 1.19 K/mm3 (0.84-5.20); LYMPHOCYTES PERCENT AUTO 9 % (21-46); MONOCYTES ABSOLUTE AUTO 1.25 K/mm3 (0.16-1.47); MONOCYTES PERCENT AUTO 10 % (4-13); Mean Corpuscular HGB 30.9 pg (26.0-34.0); Mean Corpuscular HGB Conc 33.1 g/dL (31.5-36.5); Mean Corpuscular Volume 93 fL (80-100); NEUTROPHILS ABSOLUTE AUTO 10.05 K/mm3 (1.96-9.15); NEUTROPHILS PERCENT AUTO 79 % (41-73); Platelet Count 736 K/mm3 (150-400); RDW Coefficient Variation 13.2 % (11.7-14.2); RDW Standard Deviation 45.4 fL (35.1-46.3); Red Blood Cell Count 4.11 M/mm3 (4.30-5.90); White Blood Cell Count 12.72 K/mm3 (4.00-11.30)
[2022-12-06 15:18] LABS: Albumin, Blood 2.1 g/dL (3.4-5.0); Albumin/Globulin Ratio 0.4 (0.8-1.8); Bilirubin, Total 0.4 mg/dL (0.1-1.0); Bun/Creatinine Ratio 19.1 (12.0-20.0); Calcium, Blood 8.9 mg/dL (8.5-10.1); Creatinine, Blood 0.68 mg/dL (0.60-1.20); Globulin, Blood 4.8 g/dL (2.2-4.0); Potassium, Blood 4.6 mmol/L (3.5-5.5); Total Protein, Blood 6.9 g/dL (6.4-8.2)
--- NOTE | 2022-12-06 18:42 | NUR ---
pt was assisted to bsc trying to have a bm, states he feels constipated, started him on miralax, colace and prunejuice he eventually was able to have a large dk brown stool. sitting up in chair for half a day. he decided not to be comfort care, and seek tx so is full code at this time, medicines were started, no further changes this shift, call light in reach.
[2022-12-06 19:24] VITALS: BP 135/88
[2022-12-07 03:18] VITALS: BP 143/88
[2022-12-07 07:38] LABS: BASOPHILS ABSOLUTE AUTO 0.06 K/mm3 (0.00-0.23); BASOPHILS PERCENT AUTO 1 % (0-2); EOSINOPHILS ABSOLUTE AUTO 0.22 K/mm3 (0.00-0.68); EOSINOPHILS PERCENT AUTO 2 % (0-6); Hematocrit 33.8 % (37.0-53.0); Hemoglobin 11.4 g/dL (13.5-17.5); IMMATURE GRAN ABSOLUTE AUTO 0.04 K/mm3 (0.00-0.10); IMMATURE GRAN PERCENT AUTO 0 % (0-1); LYMPHOCYTES ABSOLUTE AUTO 1.21 K/mm3 (0.84-5.20); LYMPHOCYTES PERCENT AUTO 12 % (21-46); MONOCYTES PERCENT AUTO 11 % (4-13); Mean Corpuscular HGB 30.8 pg (26.0-34.0); Mean Corpuscular HGB Conc 33.7 g/dL (31.5-36.5); Mean Corpuscular Volume 91 fL (80-100); Mean Platelet Volume 9.1 fL (9.1-12.4); NEUTROPHILS ABSOLUTE AUTO 7.34 K/mm3 (1.96-9.15); NEUTROPHILS PERCENT AUTO 74 % (41-73); Platelet Count 640 K/mm3 (150-400); RDW Coefficient Variation 13.2 % (11.7-14.2); RDW Standard Deviation 43.9 fL (35.1-46.3); White Blood Cell Count 9.97 K/mm3 (4.00-11.30)
--- NOTE | 2022-12-07 07:43 | NUR ---
WOUND CARE PROVIDED ORDERED. PT REPORTS BURNING PAIN TO FEET. MORPHINE AND TYLENOL MODERATELY EFFECTIVE. TRANSFERRED FROM CHAIR TO BED WITH X2 ASSIST. SATS STABLE ON 5L NC. UNEVENTFUL NIGHT.
[2022-12-07 07:50] LABS: Albumin, Blood 2.1 g/dL (3.4-5.0); Albumin/Globulin Ratio 0.5 (0.8-1.8); Bilirubin, Total 0.5 mg/dL (0.1-1.0); Bun/Creatinine Ratio 15.4 (12.0-20.0); Calcium, Blood 8.7 mg/dL (8.5-10.1); Creatinine, Blood 0.58 mg/dL (0.60-1.20); Globulin, Blood 4.1 g/dL (2.2-4.0); Potassium, Blood 3.9 mmol/L (3.5-5.5); Total Protein, Blood 6.2 g/dL (6.4-8.2)
[2022-12-07 07:52] VITALS: BP 134/84
--- NOTE | 2022-12-07 08:00 | NUR ---
Pt laying in bed watching tv, a/ox4 pleasant and cooperative with care, follows commands well, states he's doing ok, no needs at this time. call light in reach.
--- NOTE | 2022-12-07 18:14 | NUR ---
pt had an uneventful day today, Dr. Vidal saw him and changed medications around, medicated for feet pain, no further changes this shift.
[2022-12-07 19:29] VITALS: BP 89/66
[2022-12-07 20:19] VITALS: BP 132/78
[2022-12-08 04:13] VITALS: BP 115/68
[2022-12-08 06:13] LABS: BASOPHILS ABSOLUTE AUTO 0.08 K/mm3 (0.00-0.23); BASOPHILS PERCENT AUTO 1 % (0-2); EOSINOPHILS ABSOLUTE AUTO 0.18 K/mm3 (0.00-0.68); EOSINOPHILS PERCENT AUTO 2 % (0-6); Hematocrit 33.4 % (37.0-53.0); Hemoglobin 11.2 g/dL (13.5-17.5); IMMATURE GRAN ABSOLUTE AUTO 0.04 K/mm3 (0.00-0.10); IMMATURE GRAN PERCENT AUTO 0 % (0-1); LYMPHOCYTES ABSOLUTE AUTO 1.34 K/mm3 (0.84-5.20); LYMPHOCYTES PERCENT AUTO 14 % (21-46); MONOCYTES ABSOLUTE AUTO 1.17 K/mm3 (0.16-1.47); MONOCYTES PERCENT AUTO 12 % (4-13); Mean Corpuscular HGB 30.9 pg (26.0-34.0); Mean Corpuscular HGB Conc 33.5 g/dL (31.5-36.5); Mean Corpuscular Volume 92 fL (80-100); NEUTROPHILS ABSOLUTE AUTO 6.78 K/mm3 (1.96-9.15); NEUTROPHILS PERCENT AUTO 71 % (41-73); Platelet Count 677 K/mm3 (150-400); RDW Coefficient Variation 13.2 % (11.7-14.2); Red Blood Cell Count 3.63 M/mm3 (4.30-5.90); White Blood Cell Count 9.59 K/mm3 (4.00-11.30)
[2022-12-08 06:43] LABS: Albumin, Blood 2.1 g/dL (3.4-5.0); Albumin/Globulin Ratio 0.5 (0.8-1.8); Bilirubin, Total 0.4 mg/dL (0.1-1.0); Bun/Creatinine Ratio 17.5 (12.0-20.0); Calcium, Blood 8.8 mg/dL (8.5-10.1); Creatinine, Blood 0.63 mg/dL (0.60-1.20); Globulin, Blood 4.2 g/dL (2.2-4.0); Potassium, Blood 4.4 mmol/L (3.5-5.5); Total Protein, Blood 6.3 g/dL (6.4-8.2)
[2022-12-08 07:12] LABS: HBSAG SCREEN Negative (Negative); HCV AB Non Reactive (Non Reactive); HEP A AB, IGM Negative (Negative); HEP B CORE AB, IGM Negative (Negative)
[2022-12-08 07:30] VITALS: BP 121/65
--- NOTE | 2022-12-08 15:54 | NUR ---
Spiritual Care Visit. Pt. is awake in bed and welcomes my visit. Pt. is pleasant. Facilitatated a review of previous visits, and considered matters of percy and belief. Continued with a life review of the Pts. family support system, which the Pt. verbalized was "broken." Prayed for Pt. Pt. verbalized gratitude for the spiritual care visit.
[2022-12-08 15:56] VITALS: BP 83/46
--- NOTE | 2022-12-08 17:26 | NUR ---
PT AOX3 AND COOPERATIVE OF CARE. PT ABLE TO MAKE NEEDS KNOWN. SAWYER PATIENT AND FLOWING WELL. BANDAGES TO LE WOUND CHANGED. PT HAD LOW BP OF 83/46. DR SANABRIA WAS NOTIFIED AND 500 ML NS BOLUS WAS GIVEN. BP WILL BE RECHECKED. PT TREATED FOR PAIN PER EMAR. NO DISTRESS NOTED AT THIS TIME WILL CONTINUE TO MONITOR.
[2022-12-08 18:01] VITALS: BP 106/66
[2022-12-08 19:10] VITALS: BP 122/63
[2022-12-09 04:27] VITALS: BP 132/55
[2022-12-09 05:48] LABS: BASOPHILS ABSOLUTE AUTO 0.07 K/mm3 (0.00-0.23); BASOPHILS PERCENT AUTO 1 % (0-2); EOSINOPHILS ABSOLUTE AUTO 0.24 K/mm3 (0.00-0.68); EOSINOPHILS PERCENT AUTO 3 % (0-6); IMMATURE GRAN ABSOLUTE AUTO 0.03 K/mm3 (0.00-0.10); IMMATURE GRAN PERCENT AUTO 0 % (0-1); LYMPHOCYTES ABSOLUTE AUTO 0.88 K/mm3 (0.84-5.20); LYMPHOCYTES PERCENT AUTO 11 % (21-46); MONOCYTES ABSOLUTE AUTO 0.81 K/mm3 (0.16-1.47); MONOCYTES PERCENT AUTO 10 % (4-13); Mean Corpuscular HGB 30.7 pg (26.0-34.0); Mean Corpuscular HGB Conc 33.3 g/dL (31.5-36.5); Mean Corpuscular Volume 92 fL (80-100); Mean Platelet Volume 8.8 fL (9.1-12.4); NEUTROPHILS ABSOLUTE AUTO 6.19 K/mm3 (1.96-9.15); NEUTROPHILS PERCENT AUTO 75 % (41-73); Platelet Count 685 K/mm3 (150-400); RDW Coefficient Variation 13.3 % (11.7-14.2); RDW Standard Deviation 45.1 fL (35.1-46.3); Red Blood Cell Count 3.58 M/mm3 (4.30-5.90); White Blood Cell Count 8.22 K/mm3 (4.00-11.30)
--- NOTE | 2022-12-09 06:15 | NUR ---
PT IS A&O4, UP 2 ASSIST TO BSC PT IS VERY WEAK, PT WAS NOT ABLE TO FINISH DOPPLER STUDY OF LOWER EXT DUE TO PAIN THERFORE REFUSED, PRN PAIN MEDS GIVEN PER MAR FOR FOOT PAIN, 4L HI TATYANA SATS LOW 90'S, CONTINUE POC
[2022-12-09 06:17] LABS: Albumin, Blood 2.2 g/dL (3.4-5.0); Albumin/Globulin Ratio 0.5 (0.8-1.8); Bilirubin, Total 0.4 mg/dL (0.1-1.0); Calcium, Blood 9.1 mg/dL (8.5-10.1); Creatinine, Blood 0.65 mg/dL (0.60-1.20); Globulin, Blood 4.3 g/dL (2.2-4.0); Potassium, Blood 3.8 mmol/L (3.5-5.5); Total Protein, Blood 6.5 g/dL (6.4-8.2)
[2022-12-09 07:14] VITALS: BP 130/75
[2022-12-09 15:56] VITALS: BP 124/59
--- NOTE | 2022-12-09 18:14 | NUR ---
NO ACUTE CHANGES. PT AOX3 AND HAS BEEN COOPERATIVE OF CARE. PT HAD LE BANDAGES CHANGED. PT STATES PAIN IS EXTREMELY HIGH AND IS TREATED PER EMAR. PT SEEMS TO BE VERY DEPRESSED AT TIMES. CALL LIGHT WITHIN REACH WILL CONTINUE TO MONITOR.
[2022-12-09 19:21] VITALS: BP 120/66
[2022-12-10 04:33] VITALS: BP 125/56
[2022-12-10 05:45] LABS: BASOPHILS ABSOLUTE AUTO 0.06 K/mm3 (0.00-0.23); BASOPHILS PERCENT AUTO 1 % (0-2); EOSINOPHILS ABSOLUTE AUTO 0.26 K/mm3 (0.00-0.68); EOSINOPHILS PERCENT AUTO 3 % (0-6); Hematocrit 33.7 % (37.0-53.0); Hemoglobin 11.2 g/dL (13.5-17.5); IMMATURE GRAN ABSOLUTE AUTO 0.04 K/mm3 (0.00-0.10); IMMATURE GRAN PERCENT AUTO 0 % (0-1); LYMPHOCYTES ABSOLUTE AUTO 1.54 K/mm3 (0.84-5.20); LYMPHOCYTES PERCENT AUTO 15 % (21-46); MONOCYTES ABSOLUTE AUTO 1.06 K/mm3 (0.16-1.47); MONOCYTES PERCENT AUTO 11 % (4-13); Mean Corpuscular HGB 30.9 pg (26.0-34.0); Mean Corpuscular HGB Conc 33.2 g/dL (31.5-36.5); Mean Corpuscular Volume 93 fL (80-100); Mean Platelet Volume 8.6 fL (9.1-12.4); NEUTROPHILS ABSOLUTE AUTO 7.03 K/mm3 (1.96-9.15); NEUTROPHILS PERCENT AUTO 70 % (41-73); Platelet Count 721 K/mm3 (150-400); RDW Coefficient Variation 13.5 % (11.7-14.2); RDW Standard Deviation 46.3 fL (35.1-46.3); Red Blood Cell Count 3.63 M/mm3 (4.30-5.90); White Blood Cell Count 9.99 K/mm3 (4.00-11.30)
--- NOTE | 2022-12-10 05:51 | NUR ---
SHIFT HAS BEEN MOSTLY UNREMARKABLE. PT HAS SLEPT THROUGH MUCH OF SHIFT. PAIN WELL MANAGED ON CURRENT MEDICATION REGIMEN. DRESSINGS ON WOUNDS NOT CHANGED, CHANGED ON DAY SHIFT YESTERDAY PER REPORT. PT IS AOX3-4 BUT SPORADICALLY FORGETFUL/CONFUSED. BED ALARM IS ON. PT HAS NOT GOTTEN OUT OF BED THIS SHIFT. VERY EASILY REORIENTED. MUMBLES WHEN HE SPEAKS. BED LOCKED IN LOWEST POSITOIN. CALL LIGHT LEFT WITHIN REACH.
[2022-12-10 06:11] LABS: Albumin, Blood 2.4 g/dL (3.4-5.0); Albumin/Globulin Ratio 0.5 (0.8-1.8); Bilirubin, Total 0.4 mg/dL (0.1-1.0); Bun/Creatinine Ratio 22.5 (12.0-20.0); Calcium, Blood 8.7 mg/dL (8.5-10.1); Creatinine, Blood 0.62 mg/dL (0.60-1.20); Globulin, Blood 4.4 g/dL (2.2-4.0); Potassium, Blood 4.4 mmol/L (3.5-5.5); Total Protein, Blood 6.8 g/dL (6.4-8.2)
[2022-12-10 07:17] VITALS: BP 99/47
[2022-12-10 15:43] VITALS: BP 121/66
--- NOTE | 2022-12-10 16:14 | NUR ---
SHIFT SUMMARY PATIENT IS ALERT AND ORIENTED BUT FORGETFUL. PATIENT HAS HAD NO ACUTE EVENTS THIS SHIFT. VITAL SIGNS REVIEWED. PATIENT HAS REPORTED PAIN THIS SHIFT, MEDICATED PER EMAR. PATIENT HAS NOT REPORTED ANY NAUSEA, VOMITTING OR SOB THIS SHIFT. BED IN LOCKED AND LOWEST POSITION.
[2022-12-10 19:51] VITALS: BP 99/58
--- NOTE | 2022-12-11 04:25 | NUR ---
SHIFT HAS BEEN MOSTLY UNREMARKABLE. PAIN IS MOSTLY WELL MANAGED ON CURRENT MEDICATION REGIMEN BUT PT DID HAVE BRIEF BREAKTHROUGH PAIN EARLY THIS MORNING THAT WAS MANAGED WITH NEW ORDER FOR 25 MCG FENTANYL PER ORDER FROM HOSPITALIST DR. GUTIERRES. SINCE THAT TIME PT HAS BEEN SLEEPING IN BED. IF NOT PROMPTED TO TAKE OXYCODONE Q6 PER SCHEDULE PT PAIN DOES ESCALATE BUT DOES SUBSIDE AFTER MEDICATION ADMINISTRATION. PT AOX4, COOPERATIVE WITH CARE. SOMETIMES DIFFICULT TO UNDERSTAND DUE TO MUMBLING WHEN TALKING BUT ANSWERS ALL QUESTIONS AND FOLLOWS COMMANDS APPROPRIATELY. USES CALL LIGHT APPROPRIATELY. BED LOCKED IN LOWEST POSITION. CALL LIGHT LEFT WITHIN REACH.
[2022-12-11 05:22] VITALS: BP 94/74
[2022-12-11 07:08] VITALS: BP 117/64
--- NOTE | 2022-12-11 14:47 | NUR ---
WOUND DRSNG CHANGE BILAT FEET & LE DRSNG CHANGES DONE PER WOUND ORDERS. WOUND BEDS WITH DRY SCABS, NO DRNG, BLEEDING OR SWELLING NOTED. NO ODOR NOTED. BILAT ARM DRSNGS CHANGED PER WOUND ORDERS, NO DRNG, ODOR OR BLEEDING NOTED. COCCYX MEPIPLEX CHANGED, NO DRNG, ODOR OR BLEEDING NOTED. PT UNIQUE WELL. ALL WOUNDS APPEAR TO BE HEALING WELL.
[2022-12-11 15:09] VITALS: BP 133/80
--- NOTE | 2022-12-11 16:56 | NUR ---
SHIFT SUMMARY A&O X 3-4, VSS. PT IS DIFFICULT TO UNDERSTAND D/T MUMBLING BUT IS ABLE TO MAKE NEEDS KNOWN. IS PLEASANT & COOPERATIVE WITH ALL CARE. MEDICATED FOR C/O PAIN WITH ORAL MEDS AT MAX DOSE WITH GOOD RELIEF STATED BY PT. ALL WOUND DRSNGS CHANGED TODAY. NO ACUTE CHANGES THIS SHIFT. CALL LIGHT WITHIN REACH, BED IN LOW POSITION.
[2022-12-11 19:59] VITALS: BP 143/72
--- NOTE | 2022-12-11 20:05 | NUR ---
PT HAVING INTENSE BREAKTHROUGH PAIN AFTER GETTING TYLENOL AND OXYCODONE 10 MG AROUND 1800. PER SHIFT REPORT, ATTENDING PHYSICIAN DOES NOT WANT PT TO BE RECIEVING FENTANYL IV ANYMORE FOR BREAKTHROUGH PAIN. DISCUSSION WITH PT WHO REITERATED THAT THE PAIN IS INCREASING AND HE CAN NOT WAIT FOR NEXT PRN OXYCODONE DOSE. REVIEWED DR. DURON AND COULD NOT FIND RATIONALE OR REINFORCEMENT FOR HOLDING FENTANYL. CALLED TO DISCUSS WITH RESIDENT DR. WEST. AFTER DISCUSSION WITH DR. WEST REGARDING PT STATUS AND HOX DR. WEST OKAYED TO GIVE PT FENTANYL PRESCRIBED BY DR. GUTIERRES FOR BREAKTHROUGH PAIN. WILL ADMINISTER AND CONTINUE TO MONITOR.
[2022-12-12] VITALS (7 sets, daily range): BP systolic 78–133; BP diastolic 51–82
--- NOTE | 2022-12-12 03:49 | NUR ---
SHIFT MOSTLY UNREMARKABLE. PT WAS EXPERIENCING BREAKTHROUGH PAIN EARLY IN SHIFT FOR WHICH I ADMINISTERED PRN FENTANYL 25 MCG PER EMAR. SEE RELATED NOTES FOR DETAILS. NO MORE FENTANYL ADMINISTERED THIS SHIFT. PAIN SEEMS TO BE WELL MANAGED SINCE THEN ON PRN OXYCODONE AND SCHEDULED TYLENOL Q6. CALLS APPROPRIATELY. AOX4, PLEASANT IF SOMEWHAT IRRITABLE, COOPERATIVE WITH CARE. DIFFICULT TO UNDERSTAND DUE TO MUMBLING SPEECH. BED LOCKED IN LOWEST POSITION. CALL LIGHT LEFT WITHIN REACH.
--- NOTE | 2022-12-12 17:53 | NUR ---
PATIENT HYPOTENSIVE THIS AM, RECOVERED AFTER BOLUS AND MEAL, PATIENT SPEECH CLEAR BUT NONSENSICAL, BP NOW 130/62, DENEIS NAUSEA, A&D OINTMENT TO THE MEATUS, SCHEDULED TYLENOL, CHRONIC SAWYER, ALERT AND MAKES NEEDS KNOWN, BM TODAY, COOPERATIVE TO CARE, CALL LIGHT WITH IN REACH, WILL RELAY TO PM RN
[2022-12-13 04:38] VITALS: BP 113/76
--- NOTE | 2022-12-13 06:27 | NUR ---
SHIFT SUMMARY: SANGEETHA IS A&OX4. VSS, BP ON THE LOW SIDE. NIGHTTIME DOSE OF LISINOPRIL HELD, PT'S BP HAS REMAINED STABLE THIS SHIFT. PT REPORTS POOR PAIN CONTROL WITH THE SCHEDULED APAP AND GABAPENTIN AND PRN OXYCODONE. SAWYER DRAINING CLEAR YELLOW URINE. PT DID REQUEST TO GET UP TO THE BEDSIDE COMMODE THIS SHIFT. HE IS TOLERATING PO INTAKE WELL. DRESSINGS TO COCCYX, KNEE, AND BILATERAL FEET CHANGED PER ORDERS THIS SHIFT. PT IS LYING IN BED WITH THE CALL LIGHT IN REACH. WCTM UNTIL REPORT IS GIVEN TO DAY SHIFT RN.
[2022-12-13 07:19] VITALS: BP 117/71
[2022-12-13 15:25] VITALS: BP 134/71
[2022-12-13 20:02] VITALS: BP 143/74
[2022-12-14 04:31] VITALS: BP 134/69
--- NOTE | 2022-12-14 04:59 | NUR ---
SHIFT SUMMARY: SANGEETHA IS A&OX4. VSS, NO ACUTE EVENTS OVERNIGHT. PT REPORTS POOR PAIN CONTROL WITH THE SCHEDULED APAP AND PRN OXYCODONE 10 MG. PT STATES THAT THE ONLY MEDICATION WHICH PROVIDED PAIN RELIEF WAS THE IV MORPHINE WHICH WAS ORDERED WHEN PT WAS ON COMFORT CARE. DIGNA LY. DRESSINGS X 4 C/D&I, COCCYX DRESSING CHANGED THIS SHIFT. PT IS TOLERATING PO INTAKE WELL AND DID HAVE AN INCONTINENT BM THIS SHIFT. 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 A CONSULT FOR DR. MÉNDEZ WAS ORDERED ON 12/10/22, UNABLE TO LOCATE A CONSULT NOTE. DISCUSSED WITH FILTRATION OPERATOR. DISCUSSED WITH PT THAT THERE IS NO CONSULT CURRENTLY ORDERED FOR EITHER AN ORTHOPEDIC SURGEON OR TROUBLE OPERATOR. JENISE LY, DRAWS WELL. PLAN IS FOR PT TO DISCHARGE TO [facility] WHEN MEDICALLY STABLE PER CARE MANAGEMENT NOTES. PT IS SITTING UP IN BED WITH THE CALL LIGHT IN REACH. WCTM UNTIL REPORT IS GIVEN TO DAY SHIFT RN.
[2022-12-14 05:01] LABS: BASOPHILS ABSOLUTE AUTO 0.11 K/mm3 (0.00-0.23); BASOPHILS PERCENT AUTO 1 % (0-2); EOSINOPHILS ABSOLUTE AUTO 0.19 K/mm3 (0.00-0.68); EOSINOPHILS PERCENT AUTO 2 % (0-6); Hematocrit 35.1 % (37.0-53.0); Hemoglobin 11.7 g/dL (13.5-17.5); IMMATURE GRAN ABSOLUTE AUTO 0.04 K/mm3 (0.00-0.10); IMMATURE GRAN PERCENT AUTO 1 % (0-1); LYMPHOCYTES ABSOLUTE AUTO 1.57 K/mm3 (0.84-5.20); LYMPHOCYTES PERCENT AUTO 19 % (21-46); MONOCYTES ABSOLUTE AUTO 0.77 K/mm3 (0.16-1.47); MONOCYTES PERCENT AUTO 9 % (4-13); Mean Corpuscular HGB 30.8 pg (26.0-34.0); Mean Corpuscular HGB Conc 33.3 g/dL (31.5-36.5); Mean Corpuscular Volume 92 fL (80-100); Mean Platelet Volume 8.6 fL (9.1-12.4); NEUTROPHILS ABSOLUTE AUTO 5.64 K/mm3 (1.96-9.15); NEUTROPHILS PERCENT AUTO 68 % (41-73); Platelet Count 867 K/mm3 (150-400); RDW Coefficient Variation 13.5 % (11.7-14.2); RDW Standard Deviation 45.4 fL (35.1-46.3); White Blood Cell Count 8.32 K/mm3 (4.00-11.30)
[2022-12-14 05:39] LABS: Albumin, Blood 2.7 g/dL (3.4-5.0); Albumin/Globulin Ratio 0.6 (0.8-1.8); Bilirubin, Total 0.4 mg/dL (0.1-1.0); Bun/Creatinine Ratio 26.1 (12.0-20.0); Calcium, Blood 9.1 mg/dL (8.5-10.1); Creatinine, Blood 0.65 mg/dL (0.60-1.20); Globulin, Blood 4.5 g/dL (2.2-4.0); Magnesium, Blood 2.1 mg/dL (1.6-2.4); Phosphorus, Blood 3.3 mg/dL (2.5-4.9); Potassium, Blood 4.7 mmol/L (3.5-5.5); Total Protein, Blood 7.2 g/dL (6.4-8.2)
[2022-12-14 07:36] VITALS: BP 119/48
[2022-12-14 15:16] VITALS: BP 135/60
--- NOTE | 2022-12-14 16:57 | NUR ---
SHIFT SUMMARY PT PLEASANT THIS SHIFT. DISPLAYING SIGNS OF DEPRESSION TO THIS RN AND TO PHYSICAL THERAPIST, BONNIE. PT IS UPSET ABOUT HIS CURRENT SITUATION AND FEARFUL OF LOSING HIS FEET/LEGS. PT MEDICATED FOR PAIN MULTIPLE TIMES THIS SHIFT. SEE EMAR. WOUND CARE COMPLETED TO BILATERAL FEET/ANKLES. PT REFUSED TO HAVE HIS SACRUM WOUND REDRESSED STATING THAT IT WAS DONE OVERNIGHT. NEW PHOTOS OF FEET TAKEN. NO OTHER ACUTE CHANGES IN ASSESSMENT AT THIS TIME. PT TO BE NPO AT MIDNIGHT IN PREPERATION FOR A POSSIBLE PROCEDURE WITH DR. MÉNDEZ. CALL LIGHT IN REACH. VS REVIEWED.
[2022-12-14 20:16] VITALS: BP 127/67
[2022-12-15] VITALS (7 sets, daily range): BP systolic 91–142; BP diastolic 55–101
--- NOTE | 2022-12-15 04:41 | NUR ---
SHIFT SUMMARY. SHIFT WAS MOSTLY UNREMARKABLE OUTSIDE OF PAIN MANAGEMENT UNTIL EARLY THIS MORNING. PT AWOKE PANICKED ABOUT HAVING LOST HIS FEET. VITALS TAKEN AND WERE WNL OUTSIDE OF VERY MILDLY DECREASED BP. PT WAS AOX4 BUT VERY WORKED UP ABOUT A DREAM THAT HE HAD IN WHICH HE LOST HIS FEET. NEEDED REASSURANCE THAT HIS FEET WERE INDEED STILL ATTACHED. TOOK ANOTHER SET OF VITALS 15-20 MINUTES LATER WHICH WERE WNL OUTSIDE OF RR OF 24 DUE TO PATIENT BEING WORKED UP ABOUT ANXIETY RELATED TO SURGERY AND DREAM HE HAD. ADMINISTERED PRN OXYCODONE FOR PAIN. DISCUSSION WITH PT REGARDING UNDERSTANDABLE ANXIETY BUT THE OVERALL NEED FOR SURGERY AND INDICATION FOR SUCH. PT WAS ABLE TO RELAX AFTER SOME TIME AND IS NOW RESTING IN BED. PAIN SEEMS TO BE COMING DOWN AFTER OXY ADMINISTRATION AND WITH IT SOME OF HIS ANXIETY. WILL CONTINUE TO MONITOR. SHIFT OTHERWISE HAS BEEN UNREMARKABLE. SAWYER INTACT AND DRAINING WELL. DRESSINGS C/D/I. CALLS APPROPRIATELY. BED LOCKED IN LOWEST POSITION. CALL LIGHT LEFT WITHIN REACH.
--- NOTE | 2022-12-15 14:00 | NUR ---
Spiritual Care Attempted. Pt. is somnilent and cannot be roused. Prayed for Pt. Will remain available to Pt.
--- NOTE | 2022-12-15 16:46 | NUR ---
TAKEN TO [facility] PT PICKED UP AND TRANSPORTED TO [facility]. REPORT GIVEN TO PCU NURSE, PRECIOUS.
--- NOTE | 2022-12-15 19:03 | NUR ---
Transfer note Pt to room, bedside reprot from carpenter labor supervisor. Pt appears to be in severe pain, rating 12/10 on pain scale, medicated with dilaudid x1. Bilateral groin sites noted, and left radial site. Vss. Will continue to monitor.
--- NOTE | 2022-12-15 21:32 | NUR ---
Resident contacted regarding patient in a lot of pain despite being given PRN's, doctor to put in more orders.
[2022-12-16 04:51] VITALS: BP 104/54
--- NOTE | 2022-12-16 05:20 | NUR ---
Assumed care of pt at 1900. A/Ox4, c/o intractable BLE pain. Medicated with PRN's t/o evening without much budging to the pain. Maintains over 95% on 2L NC, although difficult to get Spo2 secondary to poor circulation. LS dim t/o. Occasional nonproductive cough noted. SR on tele 70-80's. Chronic steel d/t urinary retention, patent and draining yellow/clear urine. Meatus split noted, securement device replaced and moved closer to allow more slack. Cleaned and ointment applied per order. L knee, BLE wounds cleaned and redressed per orders. Sacrum was redressed during dayshift. Will report to dayshift RN.
[2022-12-16 08:12] VITALS: BP 96/84
[2022-12-16 11:18] VITALS: BP 139/67
--- NOTE | 2022-12-16 16:18 | NUR ---
Spiritual Care Visit. Pt. is awake in bed and welcomes my visit. Pt. is unsettled by the recent prognosis of risk. Pt. displays evidence of anxiety. Listen with empathy, interest and a calming presence. Pt. verbalized that he was trying to reach his sister who lives in [place] to assist in decision making. Facilitated a lengthy life review that included some very transparent broken family stories. Pastoral funeral counselor is given. Prayed for Pt. Pt. verbalized gratitude for the spiritual care visit.
[2022-12-16 16:34] VITALS: BP 116/94
--- NOTE | 2022-12-16 18:09 | NUR ---
SHIFT SUMMARY PT A&OX4, MUMBLES, SOMETIMES DIFFICULT TO UNDERSTAND. SP02>90% ON RA. TELEMETRY SHOWS NSR, HR 60'S-70'S, VSS. PT HAS R RADIAL 12/15, SITE BRUISED, SOFT, ARM BOARD IN PLACE. CHRONIC SAWYER CATHETER DRAINING TO YELLOW URINE TO GRAVITY. NO BM THIS SHIFT. PT C/O OF 8/10 PAIN IN HIS FEET, MEDICATING PER EMAR. PT REPOSITIONED SELF FREQUENTLY. MD'S IN ROOM THIS AM TO UPDATE PT ON PROCEDURE FROM DAY BEFORE. PT WITHDRAWN PART OF DAY, STATED, "IM GOING OT TAKE OUT LIFE INSURANCE AND GO FISHING". REFUSED PT/OT. CREDIT SPECIALIST IN ROOM THIS AFTERNOON TO SIT AND ENCOURAGE PT. PT RESTING IN BED WATCHING TV. CALL LIGHT IN REACH.
[2022-12-16 20:19] VITALS: BP 101/67
[2022-12-17 00:06] VITALS: BP 129/43
[2022-12-17 03:00] VITALS: BP 104/90
[2022-12-17 04:49] LABS: Hematocrit 32.4 % (37.0-53.0); Hemoglobin 10.8 g/dL (13.5-17.5)
--- NOTE | 2022-12-17 05:55 | NUR ---
Assumed care of pt at 1900. A/Ox4, c/o intractable BLE pain. Medicated with PRN's t/o evening without any help reducing the pain. Patient has had a few small 5 minute naps during the night but is unable to sleep from the pain. Conversed with patient on his plans regarding his decision of treatments offered and patient is still unsure which direction he will go. Maintains over 95% on 1L NC. SR on tele 80-90's. Chronic steel d/t urinary retention, patent and draining yellow/clear urine. Wound care performed per order. Will report to glenna QUINONES.
[2022-12-17 06:06] LABS: Bun/Creatinine Ratio 20.6 (12.0-20.0); Creatinine, Blood 0.63 mg/dL (0.60-1.20); Potassium, Blood 3.9 mmol/L (3.5-5.5)
[2022-12-17 08:55] VITALS: BP 119/96
[2022-12-17 11:24] VITALS: BP 99/61
--- NOTE | 2022-12-17 11:28 | NUR ---
67 year old male admitted to the hospital for Acute Encephalopathy. Pt's medical history and comorbidites include: Alcohol Dependence, CHF, DM, HTN Brain Aneurysm, COPD, Hemorrhagic Stroke, and significant Peripheral Vascular Disease. Pt resting in bed and is A&OX3. Pt wearing oxygen via NC. Pt difficult to understand as he mumbles when speaking. Listened as Pt discusses his prognosis and states "I'm on a end road". Continued therapeutic listening and validated concerns. Pt reports not wanting surgery and does not want to in the hospital. Engaged in therapeutic conversation regarding goals of care. Discussed considering hospice and educated on hospice philosophy. Continued therapeutic listening and answered questions. After further discussion, Pt reports his goals are hospice but does not want comfort care as he repeats no wanting to in the hospital. Pt reports living in a mobile home alone. He reports no family support with family living out of town. He reports being on Disability with limited income. Continued therapeutic listening as he states not wanting to be a burden on people. Continued therapeutic listening. Spoke with Pt's Bedside RNs and discussed case. Pt experiencing depression. Pt currently bedbound due to severity on lower extremities and has a chronic steel in place. Pt has a fair appetite eating approximately 50% of his meals. Spoke with OT Daryl, Pt refusing to work with therapy today. Spoke with RN Margiemanarmando Kim and discussed case. Reported Pt's wishes for hospice upon D/C from the hospital. PPS 30% ADLs 4/6 Pt high risk for readmission. Pt agreeable to hospice services. Palliative Care will remain available.
--- NOTE | 2022-12-17 14:31 | NUR ---
Pt. is awake in bed and welcomes my visit. Pt. is unsettled about his options but verbalizes his intent to be discharged home. Facilitate a life review and consider the things in his life that brought him cyndi. Pt. displays evidence of being alone without significant family relationships. Pt. verbalizes regrets for life choices that have contributed to his current condition. Considered matters of Pts. spiritual background. Pt verbalizes he wants to try and go home with some home health support and if that doesn't work out, he is open to consder other options. Prayed with Pt. Pt. verbalized gratitude multiple times for the spiritual care visit.
[2022-12-17 15:18] VITALS: BP 101/58
--- NOTE | 2022-12-17 17:19 | NUR ---
SHIFT SUMMARY: PT ALERT AND ORIENTED X3, ABLE TO FOLLOW COMMANDS AND MAKE NEEDS KNOWN. FORGETFUL AT TIMES. BP STABLE, HR SR 70'S, AFEBRILE, SATS >94% ON 1L NC. RESPIRATIONS EVEN AND UNLABORED. NO COMPLAINTS OF CP/PRESSURE. COCCYX DRESSING CHANGED THIS EVENING WITH MEPILEX IN PLACE. CHRONIC SAWYER PATENT AND DRAINING TO GRAVITY. APPROX 1600 ML OF OUTPUT THIS SHIFT. 1 BM. MEDICATED FOR PAIN X3 PER EMAR. PT REMAINS BEDREST, ABLE TO REPOS IND IN BED, PT DENIED PT/OT THERAPY THIS SHIFT. PT ANXIOUS AT START OF SHIFT REGARDING QUALITY OF LIFE. STATED "DOES NOT WANT TO ." PT STATED WISHES TO GO HOME AND LIVE WITH SISTER AFTER DISCHARGE. MOOD WITHDRAWN AND FLAT MAJORITY OF THE DAY. PALLATIVE CARE AT BEDSIDE THIS AFTERNOON TO DISCUSS DISCHARGE OPTIONS, SEE NOTE. PT NOW MED NO TELE. BED IN LOW, CALL LIGHT IN REACH, WILL REPORT TO ONCOMING RN.
--- NOTE | 2022-12-17 18:14 | NUR ---
PT TRANSFERED FROM PCU. REPORT RECIEVED FROM RN. PT IS ALERT AND ORIENTED X4. 1L NC
[2022-12-17 19:20] VITALS: BP 117/71
[2022-12-18] VITALS (7 sets, daily range): BP systolic 84–129; BP diastolic 46–72
--- NOTE | 2022-12-18 06:15 | NUR ---
SHIFT SUMMARY PT IN A LOT OF PAIN THIS SHIFT REQUIRING OXYCODONE AND SEVERAL DOSES OF MORPHINE. WAS EVENTUALLY ABLE TO DO DRESSING CHANGES ON BLE AND L KNEE WHEN PAIN IMPROVED. HOWEVER PAIN INCREASED DURING AND AFTER DRESSING CHANGES. PT FINALLY HAD ADEQUATE PAIN CONTROL AROUND [id number] WHEN HE FINALLY WAS ABLE TO FALL ASLEEP
--- NOTE | 2022-12-18 16:37 | NUR ---
Pt resting in bed upon arrival. Pt reports 9/10 pain in his legs and just received breakthrough pain medication approximately 15 minutes before this RN arrived. Discussed consideration of long acting pain medication with Pt. Pt appears to be in agreement. Consulted with hospital pharmacist Kirstin. Review of breakthrough medication. Recommendations are Oxycontin 40mg PO every 12 hours and continued oxycodone for breakthrough pain. Called and spoke with Dr Gibson and discussed case. Placed order for Oxycontin 40mg PO every 12 hours and D/C Roxanol per V/O from Dr Gibson. Plan: Continued monitoring of pain management. Palliative Care will remain available.
--- NOTE | 2022-12-18 17:32 | NUR ---
PT IS ALERT AND ORIENTED X4. 1L NC FOR COMFORT. PT DENIES SMOKING. PT EDUCATED ON RISK OF HAVING IGNITION SOURCES IN HOSPITAL. PT DENIES HAVING ANY IGNITION SOURCES. PT PAIN HAS BEEN POORLY CONTROLLED. PALLIATIVE CARE CONSULTED WITH PHYSICIAN AND PT. PAIN REGIMEN UPDATED. WILL SEE IF PAIN IS BETTER CONTROLLED. NO ACUTE CHANGES THIS SHIFT.
--- NOTE | 2022-12-18 18:12 | NUR ---
Late entry from previous note. Pt started on Oxycontin 30 mg PO every [address] Gibson.
[2022-12-19 02:12] VITALS: BP 112/60
--- NOTE | 2022-12-19 03:59 | NUR ---
SHIFT SUMMARY NOC PT A/O X 4. PLEASANT AND COOPERATIVE WITH CARE. NO ACUTE CHANGES TO REPORT. PT PAIN MANAGED PER EMAR. PT HAS PG IN GU[place]. DRESSING ON BLE CHANGED PER MD ORDERS. PT ON O2 1L/NC FOR COMFORT. PT ANTICPATED TO STAY FOR A FEW MORE DAYS TO DETERMINE EITHER HOME HOSPICE OR HOME HEALTH BEST PLAN OF CARE FOR PT. PT EDUCATED ON [facility] IGNITION/NON SMOKING POLICY.PT IS CURRENTLY RESTING WITH BED IN LOWEST POSITION, AND CALL LIGHT WITHIN REACH.
--- NOTE | 2022-12-19 04:23 | NUR ---
PT RECEIVED EDUCATION ON [facility] EXPLOSIVE IGNITION MATERIALS SAFETY POLICY.
[2022-12-19 07:51] VITALS: BP 107/91
[2022-12-19 14:50] VITALS: BP 109/61
--- NOTE | 2022-12-19 18:30 | NUR ---
SUMMARY- NO ACUTE EVENTS THIS SHIFT. PT IS AAOX3-4. PAIN WELL CONTROLLED W/EMAR MEDS. WOUND CARE PERFORMED PER ORDERS.
[2022-12-19 19:59] VITALS: BP 105/80
--- NOTE | 2022-12-20 04:23 | NUR ---
SHIFT SUMMARY NOC PT A/O X 4. PLEASANT AND COOPERATIVE WITH CARE. PT PAIN BEING MANAGED PER EMAR.DRESSING ON BLE CHANGED AND ARE C/D/I. PG IN GU[place] THAT IS SALINE LOCKED. PT EXPECTED TO BE IN HOSPITAL FOR NEXT 20 DAYS BASED ON MD ASSESSMENT. PT ON O2 2L/NC FOR COMFORT. PT EXPECTED TO EVENTUALLY GO HOME ON EITHER HOSPICE OR HOME HEALTH. PT IS CURRENTLY RESTING WITH BED IN LOWEST POSITION, AND CALL LIGHT WITHIN REACH. PT ALSO EDUCATED ON [facility] IGNITION/EXPLOSIVES NON SMOKING SAFETY POLICY.
[2022-12-20 04:30] VITALS: BP 112/56
[2022-12-20 07:20] VITALS: BP 115/56
[2022-12-20 15:42] VITALS: BP 95/70
--- NOTE | 2022-12-20 17:11 | NUR ---
SUMMARY- NO ACUTE EVENTS THIS SHIFT. WOUND CARE PERFORMED PER ORDERS THIS SHIFT. PT AAOX3-4. PAIN WELL CONTROLLED WITH EMAR PAIN MEDS.
[2022-12-20 19:47] VITALS: BP 125/76
--- NOTE | 2022-12-21 04:17 | NUR ---
SHIFT SUMMARY NOC PT A/O X 3-4. PLEASANT AND COOPERATIVE WITH CARE. NO ACUTE CHANGES TO REPORT. PT HAS SAWYER IN PLACE DRAINING URINE TO GRAVITY. PT EDUCATED ON [facility] IGNITION/EXPLOSIVE NON SMOKING POLICY. PT NO LONGER WANTS ANY INTERVENTIONS TO BE DONE AND WANT TO BE DISCHARGED ON HOSPICE. GARMENT FORM ASSEMBLER IS WORKING ON HOSPICE DISCHARGE FOR PT. PT IS CURRENTLY RESTING WITH BED IN LOWEST POSITION, AND CALL LIGHT WITHIN REACH.
[2022-12-21 07:42] VITALS: BP 115/55
--- NOTE | 2022-12-21 08:00 | NUR ---
pt laying in bed watching tv, a/ox4, pleasant and coopertive with care, follows commands well, reports 9/10 pain to b/l le, lungs are dim t/o, currently on 2 liters 02 via n/c, no cough noted, hrr, no edema noted, power glide to shoshana, site is clear and patent, btx4, reports bm this am, and refused bowel care, voids via steel cath draining yellow urine, skin has multiple wounds, noted in chart, maew, general weakness, chalino, call light in reach.
[2022-12-21 16:02] VITALS: BP 151/79
--- NOTE | 2022-12-21 16:59 | NUR ---
Pt returning to comfort care. KPS score is 40%. pt wants his grandaughter to make decisions and assit him with care. Pt still want to go home he wants to smoke and drink. He is not able to function in his home. It is apparently in very bad shape. Pt have had significant nerve pain. Will review need to adjust medications daily. Will get him some diversion for smoking. He has been off cigaretts since the 28 of november. Review with physician nicotine patch may not apporopriate and may cause untword symptoms. Will continue to support his journey. Shannai video game script writer has spoke with his sisters several times he sturggles with making decisions. He is also getting more frail. Plan is hospice.
--- NOTE | 2022-12-21 18:16 | NUR ---
pt has been made comfort care, have medicated for pain, he refused to have dressings changed as he was expecting company and having pain. denies any sourse of ignition. call light in reach.
[2022-12-21 19:14] VITALS: BP 116/58
--- NOTE | 2022-12-22 05:36 | NUR ---
Shift Summary Pt on comfort care. Pt c/o severe pain in both feet t/o shift. He would be medicated per emar, fall asleep, wake up in an hour or so and c/o 9/10 foot pain. I called hospitalist who ordered PO Roxinol Q4 because his only PRN pain medication was Q6. Pt speech is very mumbled and difficult to understand. Pt has chronic Khalil which is patent and draining to gravity. Awaiting d/c to hospice.
[2022-12-22 07:45] VITALS: BP 104/55
[2022-12-22 09:04] VITALS: BP 118/64
[2022-12-22 10:54] VITALS: BP 145/72
--- NOTE | 2022-12-22 11:40 | NUR ---
PT TRANSITIONED OFF OF COMFORT CARE THIS MORNING. HE ALSO REQUESTED TO BE TRANSITIONED FROM DNR TO FULL CODE. DNR BRACELET WAS REMOVED. CODE STATUS CHANGE. AT THIS TIME PT IS WAITING FOR TRANSFER TO ANOTHER HOSPITAL.
[2022-12-22 15:38] VITALS: BP 149/69
[2022-12-22 15:59] LABS: Hematocrit 31.1 % (37.0-53.0); Hemoglobin 10.5 g/dL (13.5-17.5); Mean Corpuscular HGB 30.8 pg (26.0-34.0); Mean Corpuscular HGB Conc 33.8 g/dL (31.5-36.5); Mean Corpuscular Volume 91 fL (80-100); Mean Platelet Volume 8.7 fL (9.1-12.4); Platelet Count 600 K/mm3 (150-400); RDW Coefficient Variation 13.3 % (11.7-14.2); RDW Standard Deviation 44.1 fL (35.1-46.3); Red Blood Cell Count 3.41 M/mm3 (4.30-5.90); White Blood Cell Count 13.86 K/mm3 (4.00-11.30)
[2022-12-22 16:23] LABS: Albumin, Blood 2.4 g/dL (3.4-5.0); Albumin/Globulin Ratio 0.5 (0.8-1.8); Bilirubin, Total 0.3 mg/dL (0.1-1.0); Bun/Creatinine Ratio 13.9 (12.0-20.0); Creatinine, Blood 0.65 mg/dL (0.60-1.20); Globulin, Blood 4.7 g/dL (2.2-4.0); Potassium, Blood 3.8 mmol/L (3.5-5.5); Total Protein, Blood 7.1 g/dL (6.4-8.2)
[2022-12-22 16:25] VITALS: BP 149/69
--- NOTE | 2022-12-22 16:48 | NUR ---
REPORT CALLED TO DAVID NULL IN [place]. WAITING FOR TRANSPORT AT THIS TIME.
--- NOTE | 2022-12-22 17:40 | NUR ---
PT LEFT WITH MEDICAL TRANSPORT AT APPROXIMATELY 1515. PT PROVIDED WITH TYLENOL FOR PAIN MANAGEMENT PRIOR TO TRANSPORT. TRANSFER PACKET PROVIDED. DAVID QUINONES AT [facility] WAS GIVEN REPORT PRIOR TO TRANSPORT ARRIVAL AND WAS NOTIFIED WHEN HE LEFT.
--- NOTE | 2022-12-23 11:22 | NUR ---
called Hilda for supportive call. She is taking on his care and is a young woman. they have an appointment today to make her POA. He is now telling her he is not sure and wants her to make decisions. Advised her to ask for executive secretary social welfare and palliative care team to consult and help her. Will remain available. her number is [phone].
--- NOTE | 2022-12-25 17:50 | NUR ---
Follow up calls daily to tatiana to help her navigate his care. Pt was deemed not a safe canidate for surgery and will discharge on hospice.
== END 2022-12-22 17:14 | disposition short-term general hospital (02) | DRG 871 ==
LOC: ER 15:02 → PCU 20:28 → MEDS 20:28 → ICUE 20:28 → MEDS 12-02 20:30 → PCU 12-15 17:16 → MEDS 12-17 17:52
PROVIDERS: Emergency Medicine; Family Medicine; Internal Medicine Cardiovascular Disease; Nurse Practitioner Acute Care; ADMIT Internal Medicine
PROC: 0DH67UZ Insertion of Feeding Device into Stomach, Via Natural or Artificial Opening (ICD-10-PCS; principal; 2022-12-09)
PROC: HZ2ZZZZ Detoxification Services for Substance Abuse Treatment (ICD-10-PCS; 2022-12-09)
PROC: 0T9B70Z Drainage of Bladder with Drainage Device, Via Natural or Artificial Opening (ICD-10-PCS; 2022-12-09)
PROC: 3E03329 Introduction of Other Anti-infective into Peripheral Vein, Percutaneous Approach (ICD-10-PCS; 2022-12-09)
PROC: B41G1ZZ Fluoroscopy of Left Lower Extremity Arteries using Low Osmolar Contrast (ICD-10-PCS; 2022-12-15)
PROC: B41F1ZZ Fluoroscopy of Right Lower Extremity Arteries using Low Osmolar Contrast (ICD-10-PCS; 2022-12-15)
PROC: B4101ZZ Fluoroscopy of Abdominal Aorta using Low Osmolar Contrast (ICD-10-PCS; 2022-12-15)
DX: A41.01 Sepsis due to Methicillin susceptible Staphylococcus aureus (principal); G92.8 Other toxic encephalopathy; I21.A1 Myocardial infarction type 2; N39.0 Urinary tract infection, site not specified; F10.231 Alcohol dependence with withdrawal delirium; M62.82 Rhabdomyolysis; E87.1 Hypo-osmolality and hyponatremia; I50.42 Chronic combined systolic (congestive) and diastolic (congestive) heart failure; I24.9 Acute ischemic heart disease, unspecified; Z66 Do not resuscitate; Z51.5 Encounter for palliative care; E11.51 Type 2 diabetes mellitus with diabetic peripheral angiopathy without gangrene; I11.0 Hypertensive heart disease with heart failure; J44.9 Chronic obstructive pulmonary disease, unspecified; E11.621 Type 2 diabetes mellitus with foot ulcer; E78.5 Hyperlipidemia, unspecified; B95.2 Enterococcus as the cause of diseases classified elsewhere; R74.01 Elevation of levels of liver transaminase levels; R13.10 Dysphagia, unspecified; Z20.822 Contact with and (suspected) exposure to COVID-19; S81.012A Laceration without foreign body, left knee, initial encounter; S41.111A Laceration without foreign body of right upper arm, initial encounter; E11.622 Type 2 diabetes mellitus with other skin ulcer; E83.39 Other disorders of phosphorus metabolism; S31.20XA Unspecified open wound of penis, initial encounter; L89.152 Pressure ulcer of sacral region, stage 2; E86.0 Dehydration; F17.210 Nicotine dependence, cigarettes, uncomplicated; I87.2 Venous insufficiency (chronic) (peripheral); L97.522 Non-pressure chronic ulcer of other part of left foot with fat layer exposed; I25.10 Atherosclerotic heart disease of native coronary artery without angina pectoris; I25.5 Ischemic cardiomyopathy; Z86.73 Personal history of transient ischemic attack (TIA), and cerebral infarction without residual deficits; Y90.0 Blood alcohol level of less than 20 mg/100 ml; Z91.013 Allergy to seafood; Z79.811 Long term (current) use of aromatase inhibitors; Z79.82 Long term (current) use of aspirin; Z79.51 Long term (current) use of inhaled steroids; Z79.899 Other long term (current) drug therapy; Z79.02 Long term (current) use of antithrombotics/antiplatelets; I25.2 Old myocardial infarction; X58.XXXA Exposure to other specified factors, initial encounter
CPT/HCPCS: 0241U; 36245; 36415; 51702; 70450; 71045; 75625; 75710; 76700; 76937; 78452; 80048; 80053; 80074; 81001; 82140; 82550; 82553; 82947; 82977; 83605; 83735; 83880; 84100; 84484; 85014; 85018; 85025; 85027; 85610; 87040; 87077; 87086; 87186; 92610; 93005; 93010; 93017; 93925; 93970; 94640; 94664; 94760; 94762; 96361-59; 96365-59; 96375-59; 96376-59; 97110; 97110-CQ; 97162; 97164; 97166; 97530; 97530-CQ; 99152; 99153; 99285-25; A9270; A9500; C1751; C1769; C1887; C1894; C8929; G0480; J0290; J0696; J1170; J1644; J1650; J2060; J2250; J2270; J2405; J2785; J3010; J3411; J7030; J7040; J7042; J7050; J7060; J7120; Q9957; Q9967